=== PATIENT | male | born 1960 | race Caucasian/White ===

== ENCOUNTER → 2017-04-04 | Outpatient (CLI) | payer OTHER, MEDICAID ==
[~2017-04-04] MED LIST: AVEL1TAB3 PO; FLAG500T PO; PANT40TA2 PO; POTA10CA PO; PROT1TAB2 PO; TYLE500T78 PO
[2017-04-04 14:17] LABS: MEAN CORPUSCULAR HEMOGLOBIN 34.2 pg (27.0-33.0); MEAN CORPUSCULAR HGB CONC 34.5 g/dl (32.0-36.5); MEAN CORPUSCULAR VOLUME 99.1 fl (80.0-96.0); PLATELET COUNT, AUTOMATED 180 10^3/uL (150-450); RED CELL DISTRIBUTION WIDTH 12.6 % (11.5-14.5); WHITE BLOOD COUNT 7.5 10^3/uL (4.0-10.0)
[2017-04-04 14:43] LABS: ALBUMIN 3.8 GM/DL (3.2-5.2); ALBUMIN/GLOBULIN RATIO 1.31 (1.00-1.93); ALKALINE PHOSPHATASE 66 U/L (45-117); ALT/SGPT 29 U/L (12-78); ANION GAP 5 MEQ/L (8-16); AST/SGOT 18 U/L (15-37); BILIRUBIN,TOTAL 0.8 MG/DL (0.2-1.0); BLOOD UREA NITROGEN 14 MG/DL (7-18); CALCIUM LEVEL 8.9 MG/DL (8.5-10.1); CARBON DIOXIDE LEVEL 31 MEQ/L (21-32); CHLORIDE LEVEL 106 MEQ/L (98-107); CREATININE FOR GFR 1.05 MG/DL (0.70-1.30); GLOMERULAR FILTRATION RATE > 60.0 (>56); GLUCOSE, FASTING 93 MG/DL (70-105); SODIUM LEVEL 142 MEQ/L (136-145); THYROXINE (T4) 7.7 UG/DL (4.5-12.0); TOTAL PROTEIN 6.7 GM/DL (6.4-8.2)
[2017-04-04 14:58] LABS: ERYTHROCYTE SEDIMENTATION RATE 6 mm/hr (0-20)
[2017-04-05 10:34] LABS: THYROID PEROXIDASE ANTIBODY < 28.0 U/ML (<60.0)
[2017-04-09 00:08] LABS: IGE RECEPTOR ABY 1 5.6 (<10)
== END ==
LOC: M SMT 09:10
PROVIDERS: ATTEND Allergy & Immunology Allergy
DX: L50.1 Idiopathic urticaria (principal)

== ENCOUNTER 2024-09-03 09:14 | Inpatient (IN) | payer OTHER ==
[~2024-09-03] VITALS: Ht 177.8 cm; Wt 110.0 kg
[~2024-09-03 09:14] MED LIST changes: +DOXY100C3 PO; +MUCI600T37 PO; -PANT40TA2 PO; +PANT40TA29 PO; +POTA-136 PO; -POTA10CA PO
[2024-09-03] MEDS: ALBUTEROL SULFATE 2.5MG/0.5ML INH NEB SOLN INH ONE (09:45)
[2024-09-03] MEDS: IPRATROPIUM 0.5MG/ALBUTEROL 2.5MG INH SOL UD 3ML (DUONEB) NEB ONE (09:45)
[2024-09-03] MEDS: NS (Normal Saline) 0.9% 1,000 ML IV ONE (09:56)
[2024-09-03] MEDS: methylPREDNISolone 125MG 2ML VIAL IV ONE (10:01)
[2024-09-03 10:12] LABS: BASO # 0.1 10^3/uL (0.0-0.2); BASO % 0.3 % (0.0-1.0); EOS # 0.1 10^3/uL (0.0-0.5); EOS % 0.8 % (0.0-3.0); HEMATOCRIT 40.2 % (42.0-52.0); HEMOGLOBIN 14.3 g/dl (13.5-17.5); LYMPH # 1.6 10^3/uL (1.5-5.0); LYMPH % 10.7 % (24.0-44.0); MEAN CORPUSCULAR HEMOGLOBIN 33.5 pg (27.0-33.0); MEAN CORPUSCULAR HGB CONC 35.6 g/dl (32.0-36.5); MEAN CORPUSCULAR VOLUME 94.1 fl (80.0-96.0); MONO % 6.6 % (2.0-8.0); NEUTROPHILS # 11.7 10^3/uL (1.5-8.5); NEUTROPHILS % 80.7 % (36.0-66.0); PLATELET COUNT, AUTOMATED 188 10^3/uL (150-450); RED BLOOD COUNT 4.27 10^6/uL (4.30-6.10); WHITE BLOOD COUNT 14.5 10^3/uL (4.0-10.0)
[2024-09-03 10:13] LABS: VENOUS BASE EXCESS -3.4 (-2.0-2.0); VENOUS HCO3 19.9 MMOL/L (23.0-27.0); VENOUS O2 SATURATION 81.9 % (60.0-80.0); VENOUS PARTIAL PRESSURE CO2 31.2 mmHg (38.0-50.0); VENOUS PARTIAL PRESSURE O2 45.1 mmHg (30.0-50.0); VENOUS PH 7.422 UNITS (7.330-7.430); VENOUS STANDARD HCO3 21.3 MMOL/L; VENOUS TOTAL CO2 20.8 MMOL/L (24.0-28.0)
[2024-09-03] MEDS: LORazepam 2 MG/ML 1ML VIAL IV STA (10:23)
[2024-09-03 10:30] LABS: INR 1.27; PARTIAL THROMBOPLASTIN TIME 32.7 SECONDS (24.8-34.2); PROTHROMBIN TIME 16.1 SECONDS (12.5-14.5)
[2024-09-03 10:30] LABS: ABG BASE EXCESS -0.6 (-2.0-2.0); ABG HCO3 21.9 MMOL/L (22.0-26.0); ABG O2 SATURATION 94.9 % (95.0-99.0); ABG PARTIAL PRESSURE CO2 30.1 mmHg (35.0-45.0); ABG PARTIAL PRESSURE O2 75.8 mmHg (75.0-100.0); ABG STANDARD HCO3 23.9 MMOL/L. (22.0-26.0); ABG TOTAL CO2 22.8 MMOL/L (23.0-31.0)
[2024-09-03 10:36] LABS: CK-MB VALUE MASS 2.3 NG/ML (<3.6)
[2024-09-03 10:38] LABS: ALBUMIN 2.8 G/DL (3.2-5.2); ALKALINE PHOSPHATASE 99 U/L (40-129); ALT/SGPT 24 U/L (7.0-40); AST/SGOT 37 U/L (<34); BILIRUBIN,DIRECT 0.5 MG/DL (<0.4); BILIRUBIN,TOTAL 1.3 MG/DL (0.3-1.2); BLOOD UREA NITROGEN 13 MG/DL (9-23); CALCIUM LEVEL 8.4 MG/DL (8.3-10.6); CARBON DIOXIDE LEVEL 24 MMOL/L (20-31); CHLORIDE LEVEL 101 MMOL/L (98-107); CPK CREATINE PHOSPHOKINASE 428 U/L (46-171); CREATININE FOR GFR 1.08 MG/DL (0.70-1.30); GLOMERULAR FILTRATION RATE > 60.0 (>49); GLUCOSE, FASTING 119 MG/DL (74-106); MAGNESIUM LEVEL 2.4 MG/DL (1.8-2.4); MB/CK RELATIVE INDEX 0.53 (< OR =4); POTASSIUM SERUM 3.6 MMOL/L (3.5-5.1); SODIUM LEVEL 139 MMOL/L (136-145)
[2024-09-03 10:39] LABS: THYROXINE (T4) 6.7 UG/DL (4.5-10.9)
[2024-09-03] MEDS ORDERED: ISOVUE-370 76% 100ML VIAL As Ordered ONE (10:39)
[2024-09-03 10:40] LABS: THYROID STIMULATING HORMONE 6.604 uIU/ML (0.55-4.78)
[2024-09-03 10:44] LABS: PROCALCITONIN 0.24 ng/ml
[2024-09-03] MEDS: LevoFLOXacin IV 750 MG in IV 1 EA IV ONE (11:13)
[2024-09-03] MEDS ORDERED: HOME MED LIST COMPLETE! XX SCH (11:15)
[2024-09-03] MEDS: CEFEPIME HCL 2 GM in DEXTROSE 5% (D5W) ADV/MINI-BAG 50 ML IV ONE (11:20)
[2024-09-03 11:39] LABS: CK-MB VALUE MASS 2.1 NG/ML (<3.6)
[2024-09-03 11:45] LABS: MB/CK RELATIVE INDEX 0.56 (< OR =4)
[2024-09-03] MEDS: DIGOXIN INJ 0.5 MG/2 ML AMP IV STA (11:47)
[2024-09-03] MEDS: [UNRECOGNIZED DRUG - OTHER] IV ONE (12:11)
[2024-09-03] MEDS: NS 0.9% IV ONE (12:11)
[2024-09-03] MEDS: MIDODRINE 5 MG TAB PO SCH (13:13)
[2024-09-03 16:00] VITALS: BP 118/64; TEMP 97.9
[2024-09-03] MEDS: DIGOXIN INJ 0.5 MG/2 ML AMP IV SCH (16:16)
[2024-09-03] MEDS: NS (Normal Saline) 0.9% 1,000 ML IV SCH (16:16)
[2024-09-03 20:34] VITALS: BP 118/65; TEMP 96.9; O2SAT 94
[2024-09-03] MEDS: DOXYCYCLINE HYCLATE 100MG TABLET PO SCH (20:52)
[2024-09-03 23:45] VITALS: BP 127/65; TEMP 97; O2SAT 94
[2024-09-04] VITALS (9 sets, daily range): BP systolic 107–136; BP diastolic 55–70; TEMP 97.4–98.2; O2SAT 85–96
[2024-09-04 05:41] LABS: BASO % 0.1 % (0.0-1.0); HEMATOCRIT 31.3 % (42.0-52.0); LYMPH # 1.1 10^3/uL (1.5-5.0); LYMPH % 9.2 % (24.0-44.0); MEAN CORPUSCULAR HEMOGLOBIN 34.2 pg (27.0-33.0); MEAN CORPUSCULAR HGB CONC 35.1 g/dl (32.0-36.5); MEAN CORPUSCULAR VOLUME 97.2 fl (80.0-96.0); MONO # 0.6 10^3/uL (0.0-0.8); MONO % 4.9 % (2.0-8.0); NEUTROPHILS # 9.8 10^3/uL (1.5-8.5); PLATELET COUNT, AUTOMATED 130 10^3/uL (150-450); RED BLOOD COUNT 3.22 10^6/uL (4.30-6.10); WHITE BLOOD COUNT 11.6 10^3/uL (4.0-10.0)
[2024-09-04 06:07] LABS: DIGOXIN LEVEL 0.6 NG/ML (0.8-2.0)
[2024-09-04 06:10] LABS: BLOOD UREA NITROGEN 16 MG/DL (9-23); CALCIUM LEVEL 7.1 MG/DL (8.3-10.6); CARBON DIOXIDE LEVEL 22 MMOL/L (20-31); CHLORIDE LEVEL 110 MMOL/L (98-107); CHOLESTEROL LEVEL 124 MG/DL (<200); CHOLESTEROL RISK RATIO 6.04 (<5); CREATININE FOR GFR 0.86 MG/DL (0.70-1.30); GLOMERULAR FILTRATION RATE > 60.0 (>49); GLUCOSE, FASTING 137 MG/DL (74-106); HDL CHOLESTEROL 20.5 MG/DL (>40); LDL CHOLESTEROL 86.7 MG/DL (<100); NON-HDL-C 103.5 MG/DL; POTASSIUM SERUM 4.2 MMOL/L (3.5-5.1); SODIUM LEVEL 143 MMOL/L (136-145); TRIGLYCERIDES LEVEL 84 MG/DL (<150)
[2024-09-04 07:14] LABS: HEMOGLOBIN A1c 4.4 % (4.0-6.0)
[2024-09-04] MEDS: DIGOXIN 0.125 MG TAB PO SCH (08:26)
[2024-09-04] MEDS: cefTRIAXone SOD 2 GM in DEXTROSE 5% (D5W) ADV/MINI-BAG 50 ML IV SCH (08:26)
[2024-09-04] MEDS: FLUBLOK(EGGFREE) TRIVAL(24-25) VACCINE PF 0.5ML SYRINGE 18YRS & OLDER IM.IMMUN ONE (08:28)
[2024-09-04] MEDS: ALPRAZolam 0.5 MG TAB PO PRN (08:49)
[2024-09-04] MEDS: methylPREDNISolone 125MG 2ML VIAL IV ONE (10:22)
[2024-09-04] MEDS: metOLazone 5 MG TAB PO ONE (10:27)
[2024-09-04] MEDS ORDERED: FUROSEMIDE 40MG/4ML VIAL IV SCH (11:00)
[2024-09-04] MEDS: LEVALBUTEROL 1.25MG 0.5ML CONCENTRATE NEB INH SCH (12:54)
[2024-09-04] MEDS: MIDODRINE 5 MG TAB PO ONE (13:00)
[2024-09-04] MEDS: IPRATROPIUM 0.02% SOLN 0.5MG 2.5ML NEB INH SCH (14:02)
[2024-09-04] MEDS: methylPREDNISolone 125MG 2ML VIAL IV SCH (15:51)
[2024-09-04 16:44] LABS: BLOOD UREA NITROGEN 18 MG/DL (9-23); CARBON DIOXIDE LEVEL 26 MMOL/L (20-31); CHLORIDE LEVEL 105 MMOL/L (98-107); CREATININE FOR GFR 0.89 MG/DL (0.70-1.30); GLOMERULAR FILTRATION RATE > 60.0 (>49); GLUCOSE, FASTING 155 MG/DL (74-106); MAGNESIUM LEVEL 2.4 MG/DL (1.8-2.4); POTASSIUM SERUM 4.3 MMOL/L (3.5-5.1); SODIUM LEVEL 141 MMOL/L (136-145)
[2024-09-04] MEDS: FUROSEMIDE injection 100 MG, VIAL 2 BAG 13MM ADAPTER 1 EACH in NS 100 ML IV SCH (20:43)
[2024-09-05 04:14] VITALS: BP 107/66; TEMP 98; O2SAT 93
[2024-09-05 05:48] LABS: BASO % 0.1 % (0.0-1.0); HEMATOCRIT 35.3 % (42.0-52.0); HEMOGLOBIN 12.2 g/dl (13.5-17.5); LYMPH # 0.9 10^3/uL (1.5-5.0); LYMPH % 6.2 % (24.0-44.0); MEAN CORPUSCULAR HEMOGLOBIN 33.1 pg (27.0-33.0); MEAN CORPUSCULAR HGB CONC 34.6 g/dl (32.0-36.5); MEAN CORPUSCULAR VOLUME 95.7 fl (80.0-96.0); MONO # 0.5 10^3/uL (0.0-0.8); MONO % 3.5 % (2.0-8.0); NEUTROPHILS # 12.9 10^3/uL (1.5-8.5); NEUTROPHILS % 89.3 % (36.0-66.0); PLATELET COUNT, AUTOMATED 151 10^3/uL (150-450); RED BLOOD COUNT 3.69 10^6/uL (4.30-6.10); WHITE BLOOD COUNT 14.4 10^3/uL (4.0-10.0)
[2024-09-05 06:13] LABS: BLOOD UREA NITROGEN 18 MG/DL (9-23); CALCIUM LEVEL 8.8 MG/DL (8.3-10.6); CARBON DIOXIDE LEVEL 26 MMOL/L (20-31); CHLORIDE LEVEL 101 MMOL/L (98-107); CREATININE FOR GFR 1.03 MG/DL (0.70-1.30); GLOMERULAR FILTRATION RATE > 60.0 (>49); GLUCOSE, FASTING 184 MG/DL (74-106); POTASSIUM SERUM 3.2 MMOL/L (3.5-5.1); SODIUM LEVEL 140 MMOL/L (136-145)
[2024-09-05] MEDS: DIGOXIN INJ 0.5 MG/2 ML AMP IV STA (07:05)
[2024-09-05 07:16] VITALS: BP 152/67; TEMP 96.9; O2SAT 94
[2024-09-05] MEDS ORDERED: MIDODRINE 5 MG TAB PO SCH (08:00)
[2024-09-05] MEDS: METOPROLOL TART 25 MG TABLET PO ONE (09:39)
[2024-09-05] MEDS: FUROSEMIDE 40MG/4ML VIAL IV ONE (09:39)
[2024-09-05] MEDS: POTASSIUM CHLORIDE 10MEQ SR TABLET PO ONE (09:43)
[2024-09-05 11:54] VITALS: BP 97/62; TEMP 97.9; O2SAT 92
[2024-09-05] MEDS: DIGOXIN INJ 0.5 MG/2 ML AMP IV SCH (12:33)
[2024-09-05 16:24] VITALS: BP 112/66; TEMP 98.1; O2SAT 92
[2024-09-05 20:45] VITALS: BP 117/65; TEMP 98.9; O2SAT 95
[2024-09-05] MEDS: LEVALBUTEROL 1.25MG 0.5ML CONCENTRATE NEB INH SCH (23:41)
[2024-09-06] VITALS (9 sets, daily range): BP systolic 103–130; BP diastolic 59–77; TEMP 97–98.8; O2SAT 90–96
[2024-09-06] MEDS: DIGOXIN 0.125 MG TAB PO ONE (00:29)
[2024-09-06] MEDS: METOPROLOL TART 12.5 MG PER 1/2 TAB PO SCH ×2 (00:29→12:00)
[2024-09-06 06:18] LABS: BASO % 0.1 % (0.0-1.0); HEMATOCRIT 37.6 % (42.0-52.0); LYMPH % 6.9 % (24.0-44.0); MEAN CORPUSCULAR HEMOGLOBIN 33.9 pg (27.0-33.0); MEAN CORPUSCULAR HGB CONC 34.6 g/dl (32.0-36.5); MEAN CORPUSCULAR VOLUME 98.2 fl (80.0-96.0); MONO # 0.6 10^3/uL (0.0-0.8); NEUTROPHILS # 13.1 10^3/uL (1.5-8.5); NEUTROPHILS % 88.1 % (36.0-66.0); PLATELET COUNT, AUTOMATED 165 10^3/uL (150-450); RED BLOOD COUNT 3.83 10^6/uL (4.30-6.10); WHITE BLOOD COUNT 14.8 10^3/uL (4.0-10.0)
[2024-09-06 06:44] LABS: BLOOD UREA NITROGEN 30 MG/DL (9-23); CALCIUM LEVEL 8.3 MG/DL (8.3-10.6); CARBON DIOXIDE LEVEL 30 MMOL/L (20-31); CHLORIDE LEVEL 99 MMOL/L (98-107); CREATININE FOR GFR 1.15 MG/DL (0.70-1.30); GLOMERULAR FILTRATION RATE > 60.0 (>49); GLUCOSE, FASTING 142 MG/DL (74-106); POTASSIUM SERUM 3.9 MMOL/L (3.5-5.1); SODIUM LEVEL 139 MMOL/L (136-145)
[2024-09-06] MEDS: DIGOXIN 0.25 MG TAB PO SCH (09:13)
[2024-09-06] MEDS: MIDODRINE 5 MG TAB PO SCH (09:14)
[2024-09-06] MEDS: ACETAMINOPHEN 500 MG TAB PO ONE (17:09)
[2024-09-06] MEDS: POTASSIUM CHLORIDE 10MEQ SR TABLET PO ONE (17:09)
[2024-09-06] MEDS: traMADol 50 MG TAB PO ONE (17:10)
[2024-09-06 17:38] LABS: URINE STREP PNEUMONIAE ANTIGEN NOT DETECTED (NOT DETECT)
[2024-09-06] MEDS ORDERED: ACETAMINOPHEN 325 MG TAB PO PRN (21:00)
[2024-09-06] MEDS: methylPREDNISolone 40MG 1ML VIAL IV SCH (21:30)
[2024-09-07] VITALS (32 sets, daily range): BP systolic 91–134; BP diastolic 48–68; TEMP 97.2–98.6; O2SAT 78–96
[2024-09-07 07:32] LABS: BASO % 0.1 % (0.0-1.0); HEMATOCRIT 35.6 % (42.0-52.0); HEMOGLOBIN 12.2 g/dl (13.5-17.5); LYMPH # 1.3 10^3/uL (1.5-5.0); LYMPH % 10.9 % (24.0-44.0); MEAN CORPUSCULAR HEMOGLOBIN 33.7 pg (27.0-33.0); MEAN CORPUSCULAR HGB CONC 34.3 g/dl (32.0-36.5); MEAN CORPUSCULAR VOLUME 98.3 fl (80.0-96.0); MONO # 0.7 10^3/uL (0.0-0.8); MONO % 5.7 % (2.0-8.0); NEUTROPHILS % 82.2 % (36.0-66.0); PLATELET COUNT, AUTOMATED 149 10^3/uL (150-450); RED BLOOD COUNT 3.62 10^6/uL (4.30-6.10); WHITE BLOOD COUNT 12.2 10^3/uL (4.0-10.0)
[2024-09-07 07:50] LABS: DIGOXIN LEVEL 1.7 NG/ML (0.8-2.0)
[2024-09-07 07:51] LABS: BLOOD UREA NITROGEN 36 MG/DL (9-23); CALCIUM LEVEL 8.1 MG/DL (8.3-10.6); CARBON DIOXIDE LEVEL 28 MMOL/L (20-31); CHLORIDE LEVEL 102 MMOL/L (98-107); CREATININE FOR GFR 1.01 MG/DL (0.70-1.30); GLOMERULAR FILTRATION RATE > 60.0 (>49); GLUCOSE, FASTING 121 MG/DL (74-106); POTASSIUM SERUM 4.3 MMOL/L (3.5-5.1); SODIUM LEVEL 138 MMOL/L (136-145)
[2024-09-07] MEDS: FORMOTEROL FUMARATE 20 MCG/2 ML INHALATION SOLUTION (PERFOROMIST) INH SCH (09:18)
[2024-09-07] MEDS: BUDESONIDE 0.5 MG/2 ML INHALATION SUSPENSION NEB SCH (09:18)
[2024-09-07 19:27] LABS: MYCOPLASMA PNEUMONIAE IGG 2.14 (<=0.90)
[2024-09-08 02:13] VITALS: O2SAT 86
[2024-09-08 02:16] VITALS: O2SAT 89
[2024-09-08 03:51] VITALS: BP 106/55; TEMP 97.7; O2SAT 93
[2024-09-08 06:03] LABS: BASO % 0.2 % (0.0-1.0); HEMOGLOBIN 12.6 g/dl (13.5-17.5); LYMPH # 1.2 10^3/uL (1.5-5.0); LYMPH % 9.9 % (24.0-44.0); MEAN CORPUSCULAR HEMOGLOBIN 33.2 pg (27.0-33.0); MEAN CORPUSCULAR HGB CONC 34.1 g/dl (32.0-36.5); MEAN CORPUSCULAR VOLUME 97.4 fl (80.0-96.0); MONO # 0.7 10^3/uL (0.0-0.8); NEUTROPHILS % 82.7 % (36.0-66.0); PLATELET COUNT, AUTOMATED 168 10^3/uL (150-450)
[2024-09-08 06:32] LABS: BLOOD UREA NITROGEN 34 MG/DL (9-23); CALCIUM LEVEL 8.1 MG/DL (8.3-10.6); CARBON DIOXIDE LEVEL 28 MMOL/L (20-31); CHLORIDE LEVEL 102 MMOL/L (98-107); DIGOXIN LEVEL 1.7 NG/ML (0.8-2.0); GLOMERULAR FILTRATION RATE > 60.0 (>49); GLUCOSE, FASTING 116 MG/DL (74-106); POTASSIUM SERUM 4.5 MMOL/L (3.5-5.1); SODIUM LEVEL 139 MMOL/L (136-145)
[2024-09-08] MEDS: CEFDINIR 300 MG CAP (OMNICEF) PO SCH (09:53)
[2024-09-08] MEDS: TIOTROPIUM INHALER/CAPSULE (SPIRIVA) INH SCH (11:48)
[2024-09-08 12:00] VITALS: BP 116/67; TEMP 97.3; O2SAT 95
[2024-09-08] MEDS: methylPREDNISolone 40MG 1ML VIAL IV SCH (17:26)
[2024-09-08 19:55] VITALS: BP 127/69; TEMP 97.3; O2SAT 94
[2024-09-09] VITALS (8 sets, daily range): BP systolic 107–131; BP diastolic 58–72; TEMP 97.4–98.1; O2SAT 90–94
[2024-09-09 05:46] LABS: BASO % 0.2 % (0.0-1.0); HEMATOCRIT 38.6 % (42.0-52.0); HEMOGLOBIN 13.2 g/dl (13.5-17.5); LYMPH # 0.8 10^3/uL (1.5-5.0); LYMPH % 6.6 % (24.0-44.0); MEAN CORPUSCULAR HEMOGLOBIN 33.5 pg (27.0-33.0); MEAN CORPUSCULAR HGB CONC 34.2 g/dl (32.0-36.5); MONO # 0.3 10^3/uL (0.0-0.8); MONO % 2.3 % (2.0-8.0); NEUTROPHILS # 11.1 10^3/uL (1.5-8.5); NEUTROPHILS % 89.6 % (36.0-66.0); PLATELET COUNT, AUTOMATED 175 10^3/uL (150-450); RED BLOOD COUNT 3.94 10^6/uL (4.30-6.10); WHITE BLOOD COUNT 12.4 10^3/uL (4.0-10.0)
[2024-09-09 06:10] LABS: BLOOD UREA NITROGEN 29 MG/DL (9-23); CALCIUM LEVEL 8.1 MG/DL (8.3-10.6); CARBON DIOXIDE LEVEL 28 MMOL/L (20-31); CHLORIDE LEVEL 105 MMOL/L (98-107); CPK CREATINE PHOSPHOKINASE 92 U/L (46-171); CREATININE FOR GFR 0.89 MG/DL (0.70-1.30); DIGOXIN LEVEL 1.4 NG/ML (0.8-2.0); GLOMERULAR FILTRATION RATE > 60.0 (>49); GLUCOSE, FASTING 133 MG/DL (74-106); POTASSIUM SERUM 4.8 MMOL/L (3.5-5.1); SODIUM LEVEL 140 MMOL/L (136-145)
[2024-09-09 06:11] LABS: RHEUMATOID FACTOR QUANT < 3.5 IU/ML (<14)
[2024-09-09] MEDS: FLUTICASONE PROP 0.05% NASAL SPRAY 16 GM (FLONASE) NARES SCH (08:20)
[2024-09-09] MEDS ORDERED: PRED10TA2 PO (17:00)
[2024-09-09] MEDS ORDERED: IPRA0.00 NEB (17:02)
[2024-09-09] MEDS ORDERED: EASY-106 XX (17:02)
[2024-09-09] MEDS ORDERED: DIGO0.123 PO (17:03)
[2024-09-10 04:13] VITALS: BP 113/71; TEMP 98.2; O2SAT 90
[2024-09-10 06:44] LABS: BASO % 0.2 % (0.0-1.0); HEMATOCRIT 38.6 % (42.0-52.0); HEMOGLOBIN 13.2 g/dl (13.5-17.5); LYMPH # 1.1 10^3/uL (1.5-5.0); LYMPH % 7.6 % (24.0-44.0); MEAN CORPUSCULAR HEMOGLOBIN 33.2 pg (27.0-33.0); MEAN CORPUSCULAR HGB CONC 34.2 g/dl (32.0-36.5); MEAN CORPUSCULAR VOLUME 97.2 fl (80.0-96.0); MONO # 0.5 10^3/uL (0.0-0.8); NEUTROPHILS % 87.6 % (36.0-66.0); PLATELET COUNT, AUTOMATED 198 10^3/uL (150-450); RED BLOOD COUNT 3.97 10^6/uL (4.30-6.10); WHITE BLOOD COUNT 14.8 10^3/uL (4.0-10.0)
[2024-09-10 07:02] LABS: BLOOD UREA NITROGEN 28 MG/DL (9-23); CALCIUM LEVEL 8.3 MG/DL (8.3-10.6); CARBON DIOXIDE LEVEL 26 MMOL/L (20-31); CHLORIDE LEVEL 108 MMOL/L (98-107); CREATININE FOR GFR 0.89 MG/DL (0.70-1.30); DIGOXIN LEVEL 1.2 NG/ML (0.8-2.0); GLOMERULAR FILTRATION RATE > 60.0 (>49); GLUCOSE, FASTING 130 MG/DL (74-106); POTASSIUM SERUM 4.9 MMOL/L (3.5-5.1); SODIUM LEVEL 140 MMOL/L (136-145)
[2024-09-10] MEDS ORDERED: DOXY-440 PO (07:23)
[2024-09-10] MEDS ORDERED: CEFD1CAP9 PO (07:23)
[2024-09-10 11:50] VITALS: O2SAT 92
[2024-09-10 12:00] VITALS: BP 98/62; TEMP 97.6; O2SAT 92
[2024-09-10] MEDS: guaiFENesin ER TABLET 600 MG TAB PO SCH (12:15)
[2024-09-10 12:57] LABS: ANTI SCLERODERMA ANTIBODIES <1.0 NEG AI (<1.0 NEG); RNP ANTIBODY <1.0 NEG AI (<1.0 NEG); SM ANTIBODY <1.0 NEG AI (<1.0 NEG); SSA SJOGRENS A <1.0 NEG AI (<1.0 NEG); SSB SJOGRENS B <1.0 NEG AI (<1.0 NEG)
[2024-09-10 16:15] VITALS: BP 123/63; O2SAT 93
[2024-09-11 04:03] VITALS: BP 103/58; TEMP 98.2; O2SAT 91
[2024-09-11 12:30] VITALS: BP 105/59; TEMP 97.5; O2SAT 96
[2024-09-11 15:17] LABS: ANA SCREEN, IFA NEGATIVE (NEGATIVE)
[2024-09-11 16:20] VITALS: BP 113/61
[2024-09-11 16:56] VITALS: BP 125/92; TEMP 97.7; O2SAT 92
[2024-09-11 19:42] VITALS: BP 108/63; TEMP 97.5; O2SAT 90; O2SAT 92
[2024-09-12] VITALS (11 sets, daily range): BP systolic 110–136; BP diastolic 65–77; TEMP 97.2–97.5; O2SAT 86–98
[2024-09-12] MEDS: IPRATROPIUM 0.5MG/ALBUTEROL 2.5MG INH SOL UD 3ML (DUONEB) NEB PRN (04:13)
[2024-09-12 12:47] LABS: BASO % 0.1 % (0.0-1.0); HEMATOCRIT 40.6 % (42.0-52.0); HEMOGLOBIN 14.2 g/dl (13.5-17.5); LYMPH % 4.9 % (24.0-44.0); MEAN CORPUSCULAR HEMOGLOBIN 34.1 pg (27.0-33.0); MEAN CORPUSCULAR VOLUME 97.4 fl (80.0-96.0); MONO # 1.3 10^3/uL (0.0-0.8); MONO % 6.3 % (2.0-8.0); NEUTROPHILS # 18.4 10^3/uL (1.5-8.5); NEUTROPHILS % 86.5 % (36.0-66.0); PLATELET COUNT, AUTOMATED 212 10^3/uL (150-450); RED BLOOD COUNT 4.17 10^6/uL (4.30-6.10); WHITE BLOOD COUNT 21.3 10^3/uL (4.0-10.0)
[2024-09-12 13:07] LABS: ERYTHROCYTE SEDIMENTATION RATE 10 mm/hr (0-20)
[2024-09-12 13:08] LABS: BLOOD UREA NITROGEN 31 MG/DL (9-23); C REACTIVE PROTEIN QUANTITATIV < 0.50 MG/DL (<1.0); CALCIUM LEVEL 7.9 MG/DL (8.3-10.6); CARBON DIOXIDE LEVEL 24 MMOL/L (20-31); CHLORIDE LEVEL 107 MMOL/L (98-107); CREATININE FOR GFR 0.82 MG/DL (0.70-1.30); GLOMERULAR FILTRATION RATE > 60.0 (>49); GLUCOSE, FASTING 156 MG/DL (74-106); POTASSIUM SERUM 4.8 MMOL/L (3.5-5.1); SODIUM LEVEL 138 MMOL/L (136-145)
[2024-09-13 03:43] VITALS: BP 109/70; TEMP 97; O2SAT 93
[2024-09-13 07:51] LABS: PROCALCITONIN 0.08 ng/ml
[2024-09-13 12:00] VITALS: BP 111/64; TEMP 97; O2SAT 97
[2024-09-13 15:33] LABS: FREE T4 0.93 NG/DL (0.89-1.76); THYROID STIMULATING HORMONE 3.594 uIU/ML (0.55-4.78)
[2024-09-13 20:31] VITALS: BP 136/83; TEMP 97.3; O2SAT 93
[2024-09-14 01:38] LABS: RNA POLYMERASE III IgG AB < 20 Units (<20)
[2024-09-14 04:30] VITALS: BP 107/57; TEMP 97.2; O2SAT 90
[2024-09-14 04:50] VITALS: O2SAT 86
[2024-09-14 04:54] VITALS: O2SAT 92
[2024-09-14] MEDS ORDERED: E-Z-PAQUE 96% w/w SUSP 176GM BTL As Ordered ONE (08:28)
[2024-09-14] MEDS ORDERED: E-Z-GAS II EFFERVESCENT PACKET (SODIUM BICARB./CITRIC ACID/SIMETHICONE) As Ordered ONE (08:28)
[2024-09-14] MEDS ORDERED: E-Z-HD 98% w/w 340GM SUSP BTL As Ordered ONE (08:28)
[2024-09-14 11:27] LABS: CPK CREATINE PHOSPHOKINASE 60 U/L (46-171)
[2024-09-14 11:28] LABS: BLOOD UREA NITROGEN 30 MG/DL (9-23); CALCIUM LEVEL 7.8 MG/DL (8.3-10.6); CARBON DIOXIDE LEVEL 26 MMOL/L (20-31); CHLORIDE LEVEL 106 MMOL/L (98-107); CREATININE FOR GFR 0.75 MG/DL (0.70-1.30); GLOMERULAR FILTRATION RATE > 60.0 (>49); GLUCOSE, FASTING 99 MG/DL (74-106); MB/CK RELATIVE INDEX 3.33 (< OR =4); POTASSIUM SERUM 4.5 MMOL/L (3.5-5.1); SODIUM LEVEL 139 MMOL/L (136-145)
[2024-09-14 11:52] VITALS: BP 117/69; TEMP 97.5; O2SAT 91
[2024-09-14 20:42] VITALS: BP 114/67; TEMP 97.2; O2SAT 95
[2024-09-15 04:29] VITALS: BP 103/56; TEMP 97.7; O2SAT 93
[2024-09-15] MEDS: PANTOPRAZOLE 40MG TAB (PROTONIX) PO SCH (09:00)
[2024-09-15 12:00] VITALS: BP 105/67; TEMP 97; O2SAT 96
[2024-09-15] MEDS: SUCRALFATE SUSP 1GM/10ML UD PO SCH (14:01)
[2024-09-15 17:36] LABS: IONIZED CALCIUM 4.6 MG/DL (4.5-5.3)
[2024-09-15] MEDS: methylPREDNISolone 40MG 1ML VIAL IV SCH (18:08)
[2024-09-15 18:10] LABS: MAGNESIUM LEVEL 2.5 MG/DL (1.8-2.4); POTASSIUM SERUM 4.8 MMOL/L (3.5-5.1)
[2024-09-15 18:13] LABS: CK-MB VALUE MASS 1.4 NG/ML (<3.6)
[2024-09-15 18:14] LABS: MB/CK RELATIVE INDEX 2.33 (< OR =4)
[2024-09-15] MEDS: CALCIUM GLUCONATE 1,000 MG in DEXTROSE 5% (D5W) MINI-BAG PLU 100 ML IV ONE (20:21)
[2024-09-15 21:17] VITALS: BP 108/64; TEMP 97.3; O2SAT 94
[2024-09-16 03:37] VITALS: BP 103/61; TEMP 97.2; O2SAT 93
[2024-09-16 08:57] VITALS: BP 109/66; TEMP 97.3; O2SAT 93
[2024-09-16 12:00] VITALS: BP 115/70; TEMP 97.2; O2SAT 95
[2024-09-16] MEDS: methylPREDNISolone 40MG 1ML VIAL IV SCH (17:18)
[2024-09-16 21:42] VITALS: BP 100/64; TEMP 97; O2SAT 93
[2024-09-17] VITALS (9 sets, daily range): BP systolic 91–120; BP diastolic 55–66; TEMP 97–97.7; O2SAT 84–93
[2024-09-17] MEDS: MIDODRINE 5 MG TAB PO ONE (08:05)
[2024-09-17] MEDS ORDERED: PROT1TAB2 PO (08:08)
[2024-09-17] MEDS ORDERED: CARA1TAB6 PO (08:08)
[2024-09-17] MEDS: predniSONE 20 MG TAB PO SCH (09:34)
[2024-09-17] MEDS ORDERED: NEBU1EAC80 MC (13:58)
[2024-09-17 15:36] LABS: ANTI DS-DNA AB NEGATIVE (NEGATIVE)
[2024-09-18 00:30] LABS: ANCA SCREEN Negative (Negative)
[2024-09-18 11:58] LABS: ASPERGILLUS FUMIGATUS AB NEGATIVE (NEGATIVE); MICROPOLYSPORA FAENI AB NEGATIVE (NEGATIVE); PIGEON SERUM AB NEGATIVE (NEGATIVE); S VIRIDIS NEGATIVE (NEGATIVE); T CANDIDUS NEGATIVE (NEGATIVE); THERMOACTINOMYCES VULGARIS NEGATIVE (NEGATIVE)
== END 2024-09-17 17:35 | disposition home health service (06) | DRG 720 ==
LOC: M ED 09:14 → EDBD 09:14 → M ED INP 12:21 → M PCU 15:40 → M MS4PR 09-07 10:20 → M MSPAV 09-11 16:31
PROVIDERS: ADMIT General Practice; ATTEND General Practice
DX: A41.9 Sepsis, unspecified organism (principal); J96.01 Acute respiratory failure with hypoxia; I50.31 Acute diastolic (congestive) heart failure; E87.20 Acidosis, unspecified; J18.9 Pneumonia, unspecified organism; J84.10 Pulmonary fibrosis, unspecified; K76.0 Fatty (change of) liver, not elsewhere classified; I48.0 Paroxysmal atrial fibrillation; E83.51 Hypocalcemia; I48.92 Unspecified atrial flutter; J44.1 Chronic obstructive pulmonary disease with (acute) exacerbation; E86.0 Dehydration; E87.6 Hypokalemia; D72.829 Elevated white blood cell count, unspecified; I44.0 Atrioventricular block, first degree; G47.33 Obstructive sleep apnea (adult) (pediatric); E66.9 Obesity, unspecified; Z68.34 Body mass index [BMI] 34.0-34.9, adult; I49.3 Ventricular premature depolarization; K64.8 Other hemorrhoids; M54.59 Other low back pain; Z87.891 Personal history of nicotine dependence; D53.9 Nutritional anemia, unspecified

== ENCOUNTER 2024-10-13 08:17 | Inpatient (IN) | payer OTHER ==
[~2024-10-13] VITALS: Ht 162.6 cm; Wt 104.7 kg
[~2024-10-13 08:17] MED LIST changes: +CARA1TAB6 PO; +CEFD1CAP9 PO; +DIGO0.123 PO; +DOXY-440 PO; +EASY-106 XX; +IPRA0.00 NEB; +NEBU1EAC80 MC; +PRED10TA2 PO
[2024-10-13] MEDS: METOPROLOL TART 25 MG TABLET PO ONE (08:51)
[2024-10-13] MEDS: METOPROLOL 5 MG/5 ML VIAL IV SCH (08:51)
[2024-10-13] MEDS: LORazepam 2 MG/ML 1ML VIAL IV STA (08:52)
[2024-10-13 09:01] LABS: VENOUS BASE EXCESS -0.4 (-2.0-2.0); VENOUS HCO3 21.8 MMOL/L (23.0-27.0); VENOUS O2 SATURATION 97.4 % (60.0-80.0); VENOUS PARTIAL PRESSURE CO2 29.2 mmHg (38.0-50.0); VENOUS PARTIAL PRESSURE O2 93.7 mmHg (30.0-50.0); VENOUS PH 7.491 UNITS (7.330-7.430); VENOUS STANDARD HCO3 24.1 MMOL/L; VENOUS TOTAL CO2 22.7 MMOL/L (24.0-28.0)
[2024-10-13 09:22] LABS: ALBUMIN 2.9 G/DL (3.2-5.2); ALKALINE PHOSPHATASE 68 U/L (40-129); ALT/SGPT 20 U/L (7.0-40); AST/SGOT 33 U/L (<34); BILIRUBIN,DIRECT 0.4 MG/DL (<0.4); BILIRUBIN,TOTAL 1.3 MG/DL (0.3-1.2); BLOOD UREA NITROGEN 13 MG/DL (9-23); CALCIUM LEVEL 8.2 MG/DL (8.3-10.6); CARBON DIOXIDE LEVEL 25 MMOL/L (20-31); CHLORIDE LEVEL 105 MMOL/L (98-107); CREATININE FOR GFR 0.93 MG/DL (0.70-1.30); GLOMERULAR FILTRATION RATE > 90.0 (>49); GLUCOSE, FASTING 113 MG/DL (74-106); MAGNESIUM LEVEL 2.1 MG/DL (1.8-2.4); POTASSIUM SERUM 4.5 MMOL/L (3.5-5.1); SODIUM LEVEL 140 MMOL/L (136-145); TOTAL PROTEIN 5.8 G/DL (5.7-8.2)
[2024-10-13 09:24] LABS: THYROID STIMULATING HORMONE 5.918 uIU/ML (0.55-4.78)
[2024-10-13 09:50] LABS: HEMATOCRIT 35.7 % (42.0-52.0); HEMOGLOBIN 12.1 g/dl (13.5-17.5); MEAN CORPUSCULAR HEMOGLOBIN 33.3 pg (27.0-33.0); MEAN CORPUSCULAR HGB CONC 33.9 g/dl (32.0-36.5); MEAN CORPUSCULAR VOLUME 98.3 fl (80.0-96.0); PLATELET COUNT, AUTOMATED 201 10^3/uL (150-450); RED BLOOD COUNT 3.63 10^6/uL (4.30-6.10); WHITE BLOOD COUNT 11.4 10^3/uL (4.0-10.0)
[2024-10-13 10:19] LABS: INR 1.07; PROTHROMBIN TIME 14.2 SECONDS (12.5-14.5)
[2024-10-13] MEDS: NS 0.9% IV STA (10:29)
[2024-10-13] MEDS: [UNRECOGNIZED DRUG - OTHER] IV STA (10:29)
[2024-10-13] MEDS: cefTRIAXone SOD 2 GM in DEXTROSE 5% (D5W) ADV/MINI-BAG 50 ML IV ONE (10:29)
[2024-10-13] MEDS ORDERED: ISOVUE-370 76% 100ML VIAL As Ordered ONE (10:31)
[2024-10-13] MEDS ORDERED: PANT-23 PO (11:48)
[2024-10-13] MEDS ORDERED: DOCU100C17 PO (11:48)
[2024-10-13] MEDS ORDERED: SUCR1TAB56 PO (11:48)
[2024-10-13] MEDS ORDERED: IPRA0.00 INH (11:48)
[2024-10-13] MEDS ORDERED: PRED20TA PO (11:48)
[2024-10-13] MEDS ORDERED: HOME MED LIST COMPLETE! XX SCH ×2 (11:50)
[2024-10-13] MEDS: NS 500 ML IV ONE (12:07)
[2024-10-13] MEDS ORDERED: ACETAMINOPHEN 325 MG TAB PO PRN (13:40)
[2024-10-13] MEDS ORDERED: MOM 30ML SUSPENSION UDC PO PRN (13:40)
[2024-10-13] MEDS: predniSONE 20 MG TAB PO SCH (13:57)
[2024-10-13] MEDS: DIGOXIN 0.25 MG TAB PO ONE ×2 (14:18→20:41)
[2024-10-13] MEDS: LR 1,000 ML IV ONE (14:52)
[2024-10-13 15:03] LABS: PROCALCITONIN 0.11 ng/ml
[2024-10-13 15:04] LABS: FREE T4 0.87 NG/DL (0.89-1.76)
[2024-10-13 16:50] VITALS: BP 106/65; TEMP 97.9; O2SAT 90
[2024-10-13] MEDS: SUCRALFATE 1 GM TAB PO SCH (18:09)
[2024-10-13 20:34] VITALS: BP 103/68; TEMP 97.3; O2SAT 92
[2024-10-13] MEDS: DOCUSATE SODIUM 100MG CAPSULE PO SCH (20:41)
[2024-10-13] MEDS: PANTOPRAZOLE 40MG TAB (PROTONIX) PO SCH (20:41)
[2024-10-13 23:06] VITALS: O2SAT 75
[2024-10-13 23:08] VITALS: O2SAT 83
[2024-10-13 23:10] VITALS: O2SAT 89
[2024-10-14] VITALS (18 sets, daily range): BP systolic 99–102; BP diastolic 56–71; TEMP 97.3–97.7; O2SAT 65–96
[2024-10-14] MEDS: IPRATROPIUM 0.5MG/ALBUTEROL 2.5MG INH SOL UD 3ML INH PRN (01:50)
[2024-10-14] MEDS: DIGOXIN 0.125 MG TAB PO ONE (02:36)
[2024-10-14] MEDS: guaiFENesin SYRUP 200MG 10ML UDC PO ONE (04:07)
[2024-10-14 05:14] LABS: HEMATOCRIT 32.2 % (42.0-52.0); HEMOGLOBIN 10.6 g/dl (13.5-17.5); MEAN CORPUSCULAR HEMOGLOBIN 32.7 pg (27.0-33.0); MEAN CORPUSCULAR HGB CONC 32.9 g/dl (32.0-36.5); MEAN CORPUSCULAR VOLUME 99.4 fl (80.0-96.0); PLATELET COUNT, AUTOMATED 182 10^3/uL (150-450); RED BLOOD COUNT 3.24 10^6/uL (4.30-6.10); WHITE BLOOD COUNT 10.7 10^3/uL (4.0-10.0)
[2024-10-14] MEDS: LEVOTHYROXINE 25MCG TABLET (0.025MG) PO SCH (05:41)
[2024-10-14 05:47] LABS: BLOOD UREA NITROGEN 15 MG/DL (9-23); CALCIUM LEVEL 8.1 MG/DL (8.3-10.6); CARBON DIOXIDE LEVEL 25 MMOL/L (20-31); CHLORIDE LEVEL 108 MMOL/L (98-107); CREATININE FOR GFR 0.85 MG/DL (0.70-1.30); GLOMERULAR FILTRATION RATE > 90.0 (>49); GLUCOSE, FASTING 96 MG/DL (74-106); MAGNESIUM LEVEL 2.1 MG/DL (1.8-2.4); POTASSIUM SERUM 3.9 MMOL/L (3.5-5.1); SODIUM LEVEL 142 MMOL/L (136-145)
[2024-10-14] MEDS: ENOXAPARIN 40MG/0.4ML SYRINGE (J1650 PER 10MG) SC SCH (08:39)
[2024-10-14] MEDS: guaiFENesin ER TABLET 600 MG TAB PO SCH (08:39)
[2024-10-14] MEDS: METOPROLOL TART 25 MG TABLET PO SCH (08:40)
[2024-10-14] MEDS: methylPREDNISolone 125MG 2ML VIAL IV ONE (12:30)
[2024-10-14] MEDS: LevoFLOXacin 750 MG TABLET PO SCH (12:30)
[2024-10-14] MEDS: IPRATROPIUM 0.5MG/ALBUTEROL 2.5MG INH SOL UD 3ML INH SCH (16:01)
[2024-10-14] MEDS: methylPREDNISolone 125MG 2ML VIAL IV SCH (21:12)
[2024-10-15 03:41] VITALS: BP 102/63; TEMP 97.9; O2SAT 96
[2024-10-15 05:30] VITALS: O2SAT 90
[2024-10-15 08:01] VITALS: BP 108/69
[2024-10-15 08:30] LABS: HEMATOCRIT 32.6 % (42.0-52.0); HEMOGLOBIN 11.1 g/dl (13.5-17.5); MEAN CORPUSCULAR HEMOGLOBIN 33.1 pg (27.0-33.0); MEAN CORPUSCULAR VOLUME 97.3 fl (80.0-96.0); PLATELET COUNT, AUTOMATED 193 10^3/uL (150-450); RED BLOOD COUNT 3.35 10^6/uL (4.30-6.10); WHITE BLOOD COUNT 11.3 10^3/uL (4.0-10.0)
[2024-10-15 09:00] LABS: BLOOD UREA NITROGEN 15 MG/DL (9-23); CALCIUM LEVEL 8.2 MG/DL (8.3-10.6); CARBON DIOXIDE LEVEL 23 MMOL/L (20-31); CHLORIDE LEVEL 107 MMOL/L (98-107); CREATININE FOR GFR 0.79 MG/DL (0.70-1.30); GLOMERULAR FILTRATION RATE > 90.0 (>49); GLUCOSE, FASTING 135 MG/DL (74-106); POTASSIUM SERUM 4.2 MMOL/L (3.5-5.1); SODIUM LEVEL 140 MMOL/L (136-145)
[2024-10-15] MEDS ORDERED: LEVO25TA5 PO (11:40)
[2024-10-15] MEDS ORDERED: PRED10TA2 PO (11:40)
[2024-10-15] MEDS ORDERED: METO1TAB87 PO (11:40)
[2024-10-15] MEDS ORDERED: LEVO75TAB PO (11:40)
[2024-10-15] MEDS ORDERED: PANT-23 PO (11:41)
[2024-10-15 12:25] VITALS: BP 111/68; TEMP 97.7; O2SAT 94
== END 2024-10-15 14:32 | disposition home or self-care (01) | DRG 201 ==
LOC: EDBD 08:17 → M ED 08:17 → M ED INP 13:37 → M MSPAV 16:51 → OBSVTOIN 10-14 11:22 → M MSPAV 10-14 15:14
PROVIDERS: ADMIT Student in an Organized Health Care Education/Training Program; ATTEND Student in an Organized Health Care Education/Training Program
DX: I48.92 Unspecified atrial flutter (principal); J96.21 Acute and chronic respiratory failure with hypoxia; J18.9 Pneumonia, unspecified organism; I50.32 Chronic diastolic (congestive) heart failure; J84.112 Idiopathic pulmonary fibrosis; E87.20 Acidosis, unspecified; K76.0 Fatty (change of) liver, not elsewhere classified; E03.9 Hypothyroidism, unspecified; K27.9 Peptic ulcer, site unspecified, unspecified as acute or chronic, without hemorrhage or perforation; I87.8 Other specified disorders of veins; K57.90 Diverticulosis of intestine, part unspecified, without perforation or abscess without bleeding; Z79.899 Other long term (current) drug therapy; Z88.0 Allergy status to penicillin; Z79.52 Long term (current) use of systemic steroids

== ENCOUNTER 2024-10-24 12:57 | Inpatient (IN) | payer MEDICAID, OTHER ==
[~2024-10-24] VITALS: Ht 177.8 cm; Wt 102.0 kg
[2024-10-24] VITALS (8 sets, daily range): BP systolic 89–112; BP diastolic 41–80; TEMP 97–97.6; O2SAT 89–96
[2024-10-24] MEDS: MIRALAX *UNIT DOSE* 17GM PACKET PO SCH (09:00)
[~2024-10-24 12:57] MED LIST changes: +DOCU100C17 PO; +IPRA0.00 INH; +LEVO25TA5 PO; +LEVO75TAB PO; +METO1TAB87 PO; +PANT-23 PO; +PRED20TA PO; +SUCR1TAB56 PO
[2024-10-24 13:54] LABS: VENOUS BASE EXCESS 2.4 (-2.0-2.0); VENOUS HCO3 27.4 MMOL/L (23.0-27.0); VENOUS PARTIAL PRESSURE CO2 44.3 mmHg (38.0-50.0); VENOUS PARTIAL PRESSURE O2 45.5 mmHg (30.0-50.0); VENOUS STANDARD HCO3 26.1 MMOL/L; VENOUS TOTAL CO2 28.8 MMOL/L (24.0-28.0)
[2024-10-24 13:59] LABS: BASO % 0.2 % (0.0-1.0); EOS % 0.4 % (0.0-3.0); HEMATOCRIT 38.2 % (42.0-52.0); HEMOGLOBIN 12.8 g/dl (13.5-17.5); LYMPH # 0.5 10^3/uL (1.5-5.0); LYMPH % 4.2 % (24.0-44.0); MEAN CORPUSCULAR HGB CONC 33.5 g/dl (32.0-36.5); MEAN CORPUSCULAR VOLUME 98.5 fl (80.0-96.0); MONO # 0.3 10^3/uL (0.0-0.8); MONO % 2.9 % (2.0-8.0); NEUTROPHILS # 9.8 10^3/uL (1.5-8.5); NEUTROPHILS % 90.8 % (36.0-66.0); PLATELET COUNT, AUTOMATED 182 10^3/uL (150-450); RED BLOOD COUNT 3.88 10^6/uL (4.30-6.10); WHITE BLOOD COUNT 10.7 10^3/uL (4.0-10.0)
[2024-10-24 14:29] LABS: CK-MB VALUE MASS 1.4 NG/ML (<3.6)
[2024-10-24 14:31] LABS: ALBUMIN 2.8 G/DL (3.2-5.2); ALKALINE PHOSPHATASE 77 U/L (40-129); ALT/SGPT 12 U/L (7.0-40); AST/SGOT 17 U/L (<34); BILIRUBIN,DIRECT 0.4 MG/DL (<0.4); BILIRUBIN,TOTAL 1.2 MG/DL (0.3-1.2); BLOOD UREA NITROGEN 16 MG/DL (9-23); CALCIUM LEVEL 7.8 MG/DL (8.3-10.6); CARBON DIOXIDE LEVEL 30 MMOL/L (20-31); CHLORIDE LEVEL 106 MMOL/L (98-107); CPK CREATINE PHOSPHOKINASE 29 U/L (46-171); CREATININE FOR GFR 0.94 MG/DL (0.70-1.30); GLOMERULAR FILTRATION RATE > 90.0 (>49); GLUCOSE, FASTING 115 MG/DL (74-106); MB/CK RELATIVE INDEX 4.82 (< OR =4); POTASSIUM SERUM 3.9 MMOL/L (3.5-5.1); SODIUM LEVEL 142 MMOL/L (136-145); TOTAL PROTEIN 5.8 G/DL (5.7-8.2)
[2024-10-24 14:33] LABS: THYROID STIMULATING HORMONE 6.056 uIU/ML (0.55-4.78)
[2024-10-24 14:37] LABS: PROCALCITONIN 0.11 ng/ml
[2024-10-24] MEDS ORDERED: ISOVUE-370 76% 100ML VIAL As Ordered ONE (14:56)
[2024-10-24] MEDS: CEFEPIME HCL 2 GM in DEXTROSE 5% (D5W) ADV/MINI-BAG 50 ML IV ONE (14:57)
[2024-10-24] MEDS: NS 500 ML IV ONE (16:10)
[2024-10-24] MEDS ORDERED: SYNT25TA PO (17:06)
[2024-10-24] MEDS ORDERED: METO1TAB87 PO (17:07)
[2024-10-24] MEDS ORDERED: PANT40TA29 PO (17:08)
[2024-10-24] MEDS ORDERED: PRED10TA2 PO (17:12)
[2024-10-24] MEDS ORDERED: HOME MED LIST COMPLETE! XX SCH (17:15)
[2024-10-24 17:57] LABS: LDH LACTATE DEHYDROGENASE 502 U/L (120-246)
[2024-10-24] MEDS: DIGOXIN 0.125 MG TAB PO SCH (18:15)
[2024-10-24] MEDS: AZITHROMYCIN 250MG TABLET PO SCH (18:15)
[2024-10-24] MEDS: methylPREDNISolone 40MG 1ML VIAL IV SCH (18:15)
[2024-10-24 18:27] LABS: HIV 1&2 SCREEN NEGATIVE (NEGATIVE)
[2024-10-24 18:36] LABS: FREE T4 1.12 NG/DL (0.89-1.76)
[2024-10-24] MEDS: IPRATROPIUM 0.5MG/ALBUTEROL 2.5MG INH SOL UD 3ML NEB SCH (19:30)
[2024-10-24] MEDS: FORMOTEROL FUMARATE 20 MCG/2 ML INHALATION SOLUTION (PERFOROMIST) INH SCH (19:30)
[2024-10-24] MEDS: BUDESONIDE 0.5 MG/2 ML INHALATION SUSPENSION NEB SCH (19:31)
[2024-10-24] MEDS: SODIUM CHLORIDE NASAL 0.65% SPRAY BTL (OCEAN) SCH (21:00)
[2024-10-24] MEDS: guaiFENesin ER TABLET 600 MG TAB PO SCH (21:00)
[2024-10-24] MEDS: methylPREDNISolone 125MG 2ML VIAL IV SCH (21:17)
[2024-10-24] MEDS: ENOXAPARIN 100MG/1ML SYRINGE (J1650 PER 10MG) SC SCH (21:17)
[2024-10-25] VITALS (33 sets, daily range): BP systolic 90–108; BP diastolic 52–66; TEMP 97.1–98.3; O2SAT 76–98
[2024-10-25 05:04] LABS: HEMATOCRIT 33.9 % (42.0-52.0); HEMOGLOBIN 11.2 g/dl (13.5-17.5); MEAN CORPUSCULAR HEMOGLOBIN 31.7 pg (27.0-33.0); PLATELET COUNT, AUTOMATED 169 10^3/uL (150-450); RED BLOOD COUNT 3.53 10^6/uL (4.30-6.10); WHITE BLOOD COUNT 9.7 10^3/uL (4.0-10.0)
[2024-10-25 05:16] LABS: CORTISOL AM 10.4 UG/DL (4.3-22.4)
[2024-10-25 05:17] LABS: BLOOD UREA NITROGEN 19 MG/DL (9-23); CALCIUM LEVEL 7.9 MG/DL (8.3-10.6); CARBON DIOXIDE LEVEL 26 MMOL/L (20-31); CHLORIDE LEVEL 107 MMOL/L (98-107); CREATININE FOR GFR 0.85 MG/DL (0.70-1.30); GLOMERULAR FILTRATION RATE > 90.0 (>49); GLUCOSE, FASTING 172 MG/DL (74-106); POTASSIUM SERUM 3.9 MMOL/L (3.5-5.1); SODIUM LEVEL 141 MMOL/L (136-145)
[2024-10-25] MEDS: LEVOTHYROXINE 50MCG TABLET (0.05MG) PO SCH (06:13)
[2024-10-25] MEDS: SODIUM CHLORIDE HYPERTONIC 3% 4ML NEB SOL INH ONE (09:22)
[2024-10-25] MEDS ORDERED: MIRALAX *UNIT DOSE* 17GM PACKET PO PRN (10:35)
[2024-10-25] MEDS: DOCUSATE SODIUM 100MG CAPSULE PO SCH (10:36)
[2024-10-25] MEDS: PANTOPRAZOLE 40MG TAB (PROTONIX) PO SCH (20:03)
[2024-10-25] MEDS: SIMETHICONE 80MG CHEW TAB PO PRN (20:55)
[2024-10-26] VITALS (29 sets, daily range): BP systolic 91–108; BP diastolic 51–56; TEMP 97.9–98.4; O2SAT 87–96
[2024-10-26 05:29] LABS: BASO % 0.1 % (0.0-1.0); HEMOGLOBIN 10.8 g/dl (13.5-17.5); LYMPH # 0.7 10^3/uL (1.5-5.0); LYMPH % 4.7 % (24.0-44.0); MEAN CORPUSCULAR HEMOGLOBIN 32.2 pg (27.0-33.0); MEAN CORPUSCULAR HGB CONC 32.7 g/dl (32.0-36.5); MEAN CORPUSCULAR VOLUME 98.5 fl (80.0-96.0); MONO # 0.4 10^3/uL (0.0-0.8); MONO % 3.1 % (2.0-8.0); NEUTROPHILS # 12.6 10^3/uL (1.5-8.5); NEUTROPHILS % 90.9 % (36.0-66.0); PLATELET COUNT, AUTOMATED 195 10^3/uL (150-450); RED BLOOD COUNT 3.35 10^6/uL (4.30-6.10); WHITE BLOOD COUNT 13.9 10^3/uL (4.0-10.0)
[2024-10-26 05:56] LABS: BLOOD UREA NITROGEN 21 MG/DL (9-23); CALCIUM LEVEL 8.1 MG/DL (8.3-10.6); CARBON DIOXIDE LEVEL 28 MMOL/L (20-31); CHLORIDE LEVEL 108 MMOL/L (98-107); CREATININE FOR GFR 0.88 MG/DL (0.70-1.30); GLOMERULAR FILTRATION RATE > 90.0 (>49); GLUCOSE, FASTING 164 MG/DL (74-106); POTASSIUM SERUM 4.3 MMOL/L (3.5-5.1); SODIUM LEVEL 144 MMOL/L (136-145)
[2024-10-26] MEDS: BACTRIM 160MG/800MG DS TAB PO SCH (08:02)
[2024-10-26 08:53] LABS: PROCALCITONIN 0.08 ng/ml
[2024-10-26] MEDS ORDERED: ELIQ5TAB PO (09:35)
[2024-10-26] MEDS ORDERED: VARIBAR PUDDING 40% w/v 230ML TUBE As Ordered ONE (12:20)
[2024-10-26] MEDS ORDERED: E-Z-PAQUE 96% w/w SUSP 176GM BTL As Ordered ONE (12:20)
[2024-10-26] MEDS ORDERED: VARIBAR NECTAR 40% w/v 240ML SUSP BTL As Ordered ONE (12:20)
[2024-10-26] MEDS ORDERED: BARIUM SULFATE 700 MG TABLET (E-Z-DISK) As Ordered ONE (12:21)
[2024-10-27] VITALS (31 sets, daily range): BP systolic 93–106; BP diastolic 52–57; TEMP 97–98.4; O2SAT 89–97
[2024-10-27 05:52] LABS: BASO % 0.1 % (0.0-1.0); HEMATOCRIT 33.6 % (42.0-52.0); HEMOGLOBIN 10.6 g/dl (13.5-17.5); LYMPH # 0.6 10^3/uL (1.5-5.0); LYMPH % 5.1 % (24.0-44.0); MEAN CORPUSCULAR HEMOGLOBIN 31.4 pg (27.0-33.0); MEAN CORPUSCULAR HGB CONC 31.5 g/dl (32.0-36.5); MEAN CORPUSCULAR VOLUME 99.4 fl (80.0-96.0); MONO # 0.3 10^3/uL (0.0-0.8); MONO % 2.5 % (2.0-8.0); NEUTROPHILS # 10.7 10^3/uL (1.5-8.5); PLATELET COUNT, AUTOMATED 188 10^3/uL (150-450); RED BLOOD COUNT 3.38 10^6/uL (4.30-6.10); WHITE BLOOD COUNT 11.8 10^3/uL (4.0-10.0)
[2024-10-27 06:24] LABS: BLOOD UREA NITROGEN 23 MG/DL (9-23); CARBON DIOXIDE LEVEL 28 MMOL/L (20-31); CHLORIDE LEVEL 107 MMOL/L (98-107); CREATININE FOR GFR 0.91 MG/DL (0.70-1.30); GLOMERULAR FILTRATION RATE > 90.0 (>49); GLUCOSE, FASTING 135 MG/DL (74-106); MAGNESIUM LEVEL 2.4 MG/DL (1.8-2.4); POTASSIUM SERUM 4.3 MMOL/L (3.5-5.1); SODIUM LEVEL 142 MMOL/L (136-145)
[2024-10-27] MEDS: dexAMETHasone 20MG/5ML VIAL IV SCH (20:45)
[2024-10-28] VITALS (32 sets, daily range): BP systolic 91–121; BP diastolic 51–64; TEMP 96.9–98; O2SAT 88–98
[2024-10-28] MEDS: COSYNTROPIN 0.25 MG/ML 1ML VIAL IV ONE (08:47)
[2024-10-28 08:48] LABS: BASO % 0.1 % (0.0-1.0); HEMATOCRIT 36.1 % (42.0-52.0); HEMOGLOBIN 11.8 g/dl (13.5-17.5); LYMPH # 0.9 10^3/uL (1.5-5.0); LYMPH % 10.1 % (24.0-44.0); MEAN CORPUSCULAR HEMOGLOBIN 32.5 pg (27.0-33.0); MEAN CORPUSCULAR HGB CONC 32.7 g/dl (32.0-36.5); MEAN CORPUSCULAR VOLUME 99.4 fl (80.0-96.0); MONO # 0.4 10^3/uL (0.0-0.8); MONO % 4.4 % (2.0-8.0); NEUTROPHILS # 7.8 10^3/uL (1.5-8.5); NEUTROPHILS % 83.4 % (36.0-66.0); PLATELET COUNT, AUTOMATED 171 10^3/uL (150-450); RED BLOOD COUNT 3.63 10^6/uL (4.30-6.10); WHITE BLOOD COUNT 9.3 10^3/uL (4.0-10.0)
[2024-10-28 09:18] LABS: BLOOD UREA NITROGEN 19 MG/DL (9-23); CALCIUM LEVEL 8.3 MG/DL (8.3-10.6); CARBON DIOXIDE LEVEL 28 MMOL/L (20-31); CHLORIDE LEVEL 107 MMOL/L (98-107); CREATININE FOR GFR 0.79 MG/DL (0.70-1.30); GLOMERULAR FILTRATION RATE > 90.0 (>49); GLUCOSE, FASTING 98 MG/DL (74-106); POTASSIUM SERUM 3.9 MMOL/L (3.5-5.1); SODIUM LEVEL 141 MMOL/L (136-145)
[2024-10-28] MEDS: DIGOXIN 0.25 MG TAB PO SCH (15:16)
[2024-10-28 20:02] LABS: FUNGITELL INTERPRETATION NEGATIVE (NEGATIVE); FUNGITELL, SERUM < 31 pg/mL (<60)
[2024-10-28] MEDS ORDERED: dexAMETHasone 20MG/5ML VIAL IV SCH (21:00)
[2024-10-28] MEDS ORDERED: HYDROCORTISONE 100MG/2ML VIAL IV SCH (21:00)
[2024-10-28] MEDS: HYDROCORTISONE 100MG/2ML VIAL IV SCH (21:21)
[2024-10-29] VITALS (24 sets, daily range): BP systolic 88–110; BP diastolic 52–62; TEMP 94–98.1; O2SAT 85–98
[2024-10-29 08:31] LABS: BASO % 0.1 % (0.0-1.0); EOS % 0.4 % (0.0-3.0); HEMATOCRIT 35.9 % (42.0-52.0); LYMPH # 0.8 10^3/uL (1.5-5.0); LYMPH % 10.4 % (24.0-44.0); MEAN CORPUSCULAR HEMOGLOBIN 32.8 pg (27.0-33.0); MEAN CORPUSCULAR HGB CONC 33.4 g/dl (32.0-36.5); MEAN CORPUSCULAR VOLUME 98.1 fl (80.0-96.0); MONO # 0.4 10^3/uL (0.0-0.8); MONO % 4.7 % (2.0-8.0); NEUTROPHILS # 6.5 10^3/uL (1.5-8.5); NEUTROPHILS % 81.7 % (36.0-66.0); PLATELET COUNT, AUTOMATED 161 10^3/uL (150-450); RED BLOOD COUNT 3.66 10^6/uL (4.30-6.10)
[2024-10-29 08:58] LABS: BLOOD UREA NITROGEN 19 MG/DL (9-23); CALCIUM LEVEL 7.9 MG/DL (8.3-10.6); CARBON DIOXIDE LEVEL 29 MMOL/L (20-31); CHLORIDE LEVEL 105 MMOL/L (98-107); CREATININE FOR GFR 0.86 MG/DL (0.70-1.30); GLOMERULAR FILTRATION RATE > 90.0 (>49); GLUCOSE, FASTING 99 MG/DL (74-106); MAGNESIUM LEVEL 2.4 MG/DL (1.8-2.4); POTASSIUM SERUM 4.2 MMOL/L (3.5-5.1); SODIUM LEVEL 140 MMOL/L (136-145)
[2024-10-29] MEDS: DIGOXIN 0.25 MG TAB PO SCH (10:35)
[2024-10-29] MEDS: ENOXAPARIN 100MG/1ML SYRINGE (J1650 PER 10MG) SC ONE (11:54)
[2024-10-29 17:58] LABS: ASPERGILLUS FLAVUS ABY Negative (Negative); ASPERGILLUS FUMIGATUS ABY Negative (Negative); ASPERGILLUS NIGER ABY Negative (Negative)
[2024-10-30] VITALS (8 sets, daily range): BP systolic 82–113; BP diastolic 50–64; TEMP 96.8–98.2; O2SAT 91–98
[2024-10-30 04:24] LABS: BASO % 0.1 % (0.0-1.0); EOS % 0.4 % (0.0-3.0); HEMATOCRIT 34.2 % (42.0-52.0); HEMOGLOBIN 11.3 g/dl (13.5-17.5); LYMPH % 10.2 % (24.0-44.0); MEAN CORPUSCULAR HEMOGLOBIN 32.7 pg (27.0-33.0); MEAN CORPUSCULAR VOLUME 98.8 fl (80.0-96.0); MONO # 0.4 10^3/uL (0.0-0.8); MONO % 4.3 % (2.0-8.0); NEUTROPHILS # 7.8 10^3/uL (1.5-8.5); NEUTROPHILS % 82.2 % (36.0-66.0); PLATELET COUNT, AUTOMATED 162 10^3/uL (150-450); RED BLOOD COUNT 3.46 10^6/uL (4.30-6.10); WHITE BLOOD COUNT 9.5 10^3/uL (4.0-10.0)
[2024-10-30 04:50] LABS: BLOOD UREA NITROGEN 20 MG/DL (9-23); CALCIUM LEVEL 7.7 MG/DL (8.3-10.6); CARBON DIOXIDE LEVEL 28 MMOL/L (20-31); CHLORIDE LEVEL 107 MMOL/L (98-107); CREATININE FOR GFR 0.79 MG/DL (0.70-1.30); GLOMERULAR FILTRATION RATE > 90.0 (>49); GLUCOSE, FASTING 106 MG/DL (74-106); MAGNESIUM LEVEL 2.3 MG/DL (1.8-2.4); POTASSIUM SERUM 4.1 MMOL/L (3.5-5.1); SODIUM LEVEL 141 MMOL/L (136-145)
[2024-10-30] MEDS ORDERED: LIDOCAINE 2% 100MG/5ML SDV (FOR ANES.) As Ordered ONE (11:28)
[2024-10-30] MEDS ORDERED: propofoL 200 MG/20 ML VIAL As Ordered ONE (11:28)
[2024-10-30] MEDS ORDERED: ONDANSETRON 4MG 2ML VIAL As Ordered ONE (11:28)
[2024-10-30] MEDS ORDERED: ROCURONIUM BROMIDE 50MG/5ML VIAL As Ordered ONE (11:28)
[2024-10-30] MEDS ORDERED: SUGAMMADEX SODIUM 500 MG/5 ML VIAL As Ordered ONE (11:28)
[2024-10-30] MEDS ORDERED: fentaNYL 100 MCG/2 ML INJECTION As Ordered ONE (11:33)
[2024-10-30] MEDS ORDERED: MIDAZOLAM INJ 2MG/2ML VIAL As Ordered ONE (11:33)
[2024-10-30] MEDS: HYDROCORTISONE 100MG/2ML VIAL IV SCH (12:00)
[2024-10-30] MEDS: CETACAINE SPRAY 5GM As Ordered ONE (12:51)
[2024-10-30] MEDS ORDERED: ACETAMINOPHEN 1000MG/100ML IV BAG As Ordered ONE (12:52)
[2024-10-30] MEDS ORDERED: PHENYLephrine 500MCG 5ML (100MCG/ML) SYRINGE As Ordered ONE (12:53)
[2024-10-30] MEDS ORDERED: ONDANSETRON 4MG 2ML VIAL IV PRN (13:10)
[2024-10-30] MEDS ORDERED: fentaNYL 100 MCG/2 ML INJECTION IV PRN (13:10)
[2024-10-30] MEDS ORDERED: HYDROMORPHONE HCL 0.5 MG/ 0.5 ML SYRINGE IV PRN (13:10)
[2024-10-30] MEDS ORDERED: oxyCODONE 5MG TAB PO PRN (13:10)
[2024-10-30] MEDS: ALBUTEROL SULFATE 2.5MG/0.5ML INH CONCENTRATE NEB SOLN NEB ONE (13:15)
[2024-10-30] MEDS: ENOXAPARIN 100MG/1ML SYRINGE (J1650 PER 10MG) SC SCH (17:03)
[2024-10-31] VITALS (8 sets, daily range): BP systolic 80–110; BP diastolic 50–68; TEMP 96.9–97.4; O2SAT 92–95
[2024-10-31 04:43] LABS: BASO % 0.1 % (0.0-1.0); EOS % 0.4 % (0.0-3.0); HEMATOCRIT 36.1 % (42.0-52.0); HEMOGLOBIN 11.7 g/dl (13.5-17.5); LYMPH # 0.7 10^3/uL (1.5-5.0); LYMPH % 8.1 % (24.0-44.0); MEAN CORPUSCULAR HEMOGLOBIN 32.1 pg (27.0-33.0); MEAN CORPUSCULAR HGB CONC 32.4 g/dl (32.0-36.5); MEAN CORPUSCULAR VOLUME 98.9 fl (80.0-96.0); MONO # 0.4 10^3/uL (0.0-0.8); NEUTROPHILS # 7.5 10^3/uL (1.5-8.5); NEUTROPHILS % 84.4 % (36.0-66.0); PLATELET COUNT, AUTOMATED 161 10^3/uL (150-450); RED BLOOD COUNT 3.65 10^6/uL (4.30-6.10); WHITE BLOOD COUNT 8.9 10^3/uL (4.0-10.0)
[2024-10-31 04:57] LABS: BLOOD UREA NITROGEN 19 MG/DL (9-23); CALCIUM LEVEL 7.8 MG/DL (8.3-10.6); CARBON DIOXIDE LEVEL 27 MMOL/L (20-31); CHLORIDE LEVEL 103 MMOL/L (98-107); CREATININE FOR GFR 0.84 MG/DL (0.70-1.30); GLOMERULAR FILTRATION RATE > 90.0 (>49); GLUCOSE, FASTING 103 MG/DL (74-106); MAGNESIUM LEVEL 2.3 MG/DL (1.8-2.4); POTASSIUM SERUM 4.2 MMOL/L (3.5-5.1); SODIUM LEVEL 138 MMOL/L (136-145)
[2024-10-31] MEDS: HYDROCORTISONE 10 MG TAB PO SCH (16:49)
[2024-10-31] MEDS ORDERED: ENOXAPARIN 100MG/1ML SYRINGE (J1650 PER 10MG) SC ONE (17:00)
[2024-10-31] MEDS: APIXABAN 5 MG TAB PO SCH (20:43)
[2024-11-01 00:33] LABS: HISTO GAL'MANNAN AG UR QNT < 0.2 ng/mL (<0.2)
[2024-11-01 03:26] VITALS: BP 92/50; TEMP 97; O2SAT 93
[2024-11-01 06:12] LABS: BASO % 0.3 % (0.0-1.0); EOS # 0.2 10^3/uL (0.0-0.5); EOS % 2.2 % (0.0-3.0); HEMATOCRIT 33.8 % (42.0-52.0); HEMOGLOBIN 11.1 g/dl (13.5-17.5); LYMPH # 1.4 10^3/uL (1.5-5.0); LYMPH % 19.8 % (24.0-44.0); MEAN CORPUSCULAR HEMOGLOBIN 32.4 pg (27.0-33.0); MEAN CORPUSCULAR HGB CONC 32.8 g/dl (32.0-36.5); MEAN CORPUSCULAR VOLUME 98.5 fl (80.0-96.0); MONO # 0.4 10^3/uL (0.0-0.8); MONO % 5.3 % (2.0-8.0); NEUTROPHILS # 4.9 10^3/uL (1.5-8.5); NEUTROPHILS % 67.9 % (36.0-66.0); PLATELET COUNT, AUTOMATED 147 10^3/uL (150-450); RED BLOOD COUNT 3.43 10^6/uL (4.30-6.10); WHITE BLOOD COUNT 7.2 10^3/uL (4.0-10.0)
[2024-11-01 06:34] LABS: BLOOD UREA NITROGEN 17 MG/DL (9-23); CALCIUM LEVEL 7.3 MG/DL (8.3-10.6); CARBON DIOXIDE LEVEL 28 MMOL/L (20-31); CHLORIDE LEVEL 105 MMOL/L (98-107); GLOMERULAR FILTRATION RATE > 90.0 (>49); GLUCOSE, FASTING 80 MG/DL (74-106); MAGNESIUM LEVEL 2.2 MG/DL (1.8-2.4); POTASSIUM SERUM 3.7 MMOL/L (3.5-5.1); SODIUM LEVEL 141 MMOL/L (136-145)
[2024-11-01] MEDS ORDERED: PILL CUTTER 1 EACH XX PRN (07:45)
[2024-11-01 08:22] VITALS: BP 114/60; TEMP 97.5; O2SAT 94
[2024-11-01] MEDS ORDERED: APIXABAN 5 MG TAB PO SCH (09:00)
[2024-11-01] MEDS ORDERED: LEVO50TA5 PO (10:09)
[2024-11-01] MEDS ORDERED: ELIQ5TAB PO (10:09)
[2024-11-01] MEDS ORDERED: BACTDSTA PO (10:09)
[2024-11-01] MEDS ORDERED: DIGO0.253 PO (10:09)
[2024-11-01] MEDS ORDERED: HYDR-4468 PO (10:09)
[2024-11-01] MEDS ORDERED: ADVA1AER8 INH (10:15)
[2024-11-01] MEDS ORDERED: SPIR1CAP INH (10:15)
[2024-11-01] MEDS ORDERED: IPRA0.00 INH (10:15)
[2024-11-01] MEDS ORDERED: NEBU1EAC78 MC (10:15)
[2024-11-01] MEDS ORDERED: PANT40TA29 PO (10:40)
[2024-11-01 12:00] VITALS: BP 114/54; TEMP 97.2; O2SAT 94
[2024-11-01] MEDS ORDERED: HYDROCORTISONE 10 MG TAB PO SCH (17:00)
[2024-11-01] MEDS ORDERED: ADVAIR HFA 115/21MCG INHALER INH SCH (20:00)
[2024-11-02] MEDS ORDERED: TIOTROPIUM BROM 2.5MCG/ACTUATION 4GM INH INH SCH (08:00)
== END 2024-11-01 14:32 | disposition home health service (06) | DRG 133 ==
LOC: M ED 12:57 → M ED INP 17:26 → M PCU 20:03
PROVIDERS: ADMIT Internal Medicine; ATTEND Student in an Organized Health Care Education/Training Program
PROC: 0B9J8ZX Drainage of Left Lower Lung Lobe, Via Natural or Artificial Opening Endoscopic, Diagnostic (ICD-10-PCS; principal; 2024-10-30 13:00)
DX: J96.21 Acute and chronic respiratory failure with hypoxia (principal); I26.99 Other pulmonary embolism without acute cor pulmonale; J84.9 Interstitial pulmonary disease, unspecified; E27.3 Drug-induced adrenocortical insufficiency; I48.0 Paroxysmal atrial fibrillation; I48.92 Unspecified atrial flutter; K21.9 Gastro-esophageal reflux disease without esophagitis; E03.9 Hypothyroidism, unspecified; Z79.52 Long term (current) use of systemic steroids; K59.00 Constipation, unspecified; K64.8 Other hemorrhoids; Z88.0 Allergy status to penicillin; Z79.899 Other long term (current) drug therapy; Z79.890 Hormone replacement therapy; Z87.891 Personal history of nicotine dependence

== ENCOUNTER → 2024-12-03 | Outpatient (CLI) | payer OTHER ==
[~2024-12-03] MED LIST changes: +ADVA1AER8 INH; +BACTDSTA PO; +DIGO0.253 PO; +ELIQ5TAB PO; +HYDR-4468 PO; +LEVO50TA5 PO; +NEBU1EAC78 MC; +OXYM15SP2; +SPIR1CAP INH; +SYNT25TA PO
== END ==
LOC: M EKG 15:16
PROVIDERS: ATTEND Registered Nurse
DX: I48.92 Unspecified atrial flutter (principal)

== ENCOUNTER 2025-01-20 14:15 | Observation (INO) | payer OTHER ==
[~2025-01-20] VITALS: Ht 177.8 cm; Wt 100.8 kg
[2025-01-20 14:48] LABS: BASO # 0.1 10^3/uL (0.0-0.2); BASO % 0.5 % (0.0-1.0); EOS # 0.0 10^3/uL (0.0-0.5); EOS % 0.3 % (0.0-3.0); LYMPH # 0.6 10^3/uL (1.5-5.0); LYMPH % 5.4 % (24.0-44.0); MONO # 0.4 10^3/uL (0.0-0.8); MONO % 3.2 % (2.0-8.0); NEUTROPHILS # 9.9 10^3/uL (1.5-8.5); NEUTROPHILS % 89.2 % (36.0-66.0); PLATELET COUNT, AUTOMATED 190 10^3/uL (150-450)
[2025-01-20] MEDS: ASPIRIN 81 MG CHEWABLE TABLET PO ONE (14:53)
[2025-01-20] MEDS: MORPHINE 2 MG/ML 1 ML VIAL IV ONE (15:00)
[2025-01-20 15:08] LABS: INR 1.01
[2025-01-20 15:19] LABS: CK-MB VALUE MASS 2.1 NG/ML (<3.6)
[2025-01-20 15:21] LABS: DIGOXIN LEVEL 1.4 NG/ML (0.8-2.0)
[2025-01-20 15:25] LABS: CALCIUM LEVEL 8.8 MG/DL (8.3-10.6); CARBON DIOXIDE LEVEL 26 MMOL/L (20-31); CHLORIDE LEVEL 101 MMOL/L (98-107); CREATININE FOR GFR 0.93 MG/DL (0.70-1.30); GLOMERULAR FILTRATION RATE > 90.0 (>49); POTASSIUM SERUM 4.2 MMOL/L (3.5-5.1); SODIUM LEVEL 140 MMOL/L (136-145)
[2025-01-20 15:27] LABS: CPK CREATINE PHOSPHOKINASE 44 U/L (46-171); MB/CK RELATIVE INDEX 4.77 (< OR =4)
[2025-01-20] MEDS ORDERED: MYCO500T PO (16:25)
[2025-01-20] MEDS ORDERED: CALC-356 PO (16:25)
[2025-01-20] MEDS ORDERED: LEVO50TA5 PO (17:34)
[2025-01-20] MEDS ORDERED: ELIQ5TAB PO (17:34)
[2025-01-20] MEDS ORDERED: DIGO0.253 PO (17:34)
[2025-01-20] MEDS ORDERED: HOME MED LIST COMPLETE! XX SCH (17:35)
[2025-01-20] MEDS ORDERED: ISOVUE-370 76% 100 ML VIAL As Ordered ONE (17:37)
[2025-01-20 19:24] LABS: CPK CREATINE PHOSPHOKINASE 34.0 U/L (46-171)
[2025-01-20 19:25] LABS: CK-MB VALUE MASS 2.2 NG/ML (<3.6); MB/CK RELATIVE INDEX 6.47 (< OR =4)
[2025-01-20 19:33] LABS: CK-MB VALUE MASS 2.1 NG/ML (<3.6); CPK CREATINE PHOSPHOKINASE 34.0 U/L (46-171); MB/CK RELATIVE INDEX 6.17 (< OR =4)
[2025-01-20] MEDS ORDERED: ACETAMINOPHEN 325 MG TAB PO PRN (20:25)
[2025-01-20] MEDS ORDERED: MAALOX 30 ML SUSP *UDC PO PRN (20:25)
[2025-01-20] MEDS ORDERED: MOM 30 ML SUSPENSION UDC PO PRN (20:25)
[2025-01-20 22:00] VITALS: O2SAT 95
[2025-01-20 22:08] VITALS: BP 125/68; TEMP 97.1; O2SAT 98
[2025-01-20] MEDS: DOCUSATE SODIUM 100 MG CAPSULE PO SCH (22:27)
[2025-01-20] MEDS: APIXABAN 5 MG TAB PO SCH (22:27)
[2025-01-20] MEDS: MYCOPHENOLATE MOFETIL 250 MG CAP (J7517) PO SCH (22:43)
[2025-01-20 23:00] VITALS: O2SAT 96
[2025-01-21] VITALS (18 sets, daily range): BP systolic 96–115; BP diastolic 57–65; TEMP 96.9–97.8; O2SAT 92–97
[2025-01-21 04:44] LABS: PLATELET COUNT, AUTOMATED 185 10^3/uL (150-450)
[2025-01-21 05:29] LABS: CALCIUM LEVEL 8.6 MG/DL (8.3-10.6); CARBON DIOXIDE LEVEL 28 MMOL/L (20-31); CHLORIDE LEVEL 104 MMOL/L (98-107); CREATININE FOR GFR 0.93 MG/DL (0.70-1.30); GLOMERULAR FILTRATION RATE > 90.0 (>49); MAGNESIUM LEVEL 2.3 MG/DL (1.8-2.4); POTASSIUM SERUM 3.5 MMOL/L (3.5-5.1); SODIUM LEVEL 142 MMOL/L (136-145)
[2025-01-21] MEDS: LEVOTHYROXINE 50 MCG TABLET (0.05 MG) PO SCH (06:45)
[2025-01-21] MEDS: PANTOPRAZOLE 40MG VIAL IV SCH (10:24)
[2025-01-21] MEDS: predniSONE 20 MG TAB PO SCH (10:25)
[2025-01-21] MEDS: DIGOXIN 0.25 MG TAB PO SCH (10:25)
[2025-01-22] MEDS ORDERED: BACTRIM 160MG/800MG DS TAB PO SCH (09:00)
== END 2025-01-21 14:31 | disposition home or self-care (01) ==
LOC: M ED 14:15 → EDBD 14:15 → M ED INP 14:16 → M PCU 22:02
PROVIDERS: ADMIT Student in an Organized Health Care Education/Training Program; ATTEND Student in an Organized Health Care Education/Training Program
DX: I48.0 Paroxysmal atrial fibrillation (principal); J84.9 Interstitial pulmonary disease, unspecified; J96.11 Chronic respiratory failure with hypoxia; E03.9 Hypothyroidism, unspecified; K21.9 Gastro-esophageal reflux disease without esophagitis; Z86.711 Personal history of pulmonary embolism; Z79.01 Long term (current) use of anticoagulants; Z79.52 Long term (current) use of systemic steroids; Z79.899 Other long term (current) drug therapy
CPT/HCPCS: 36415; 71045; 71275; 80048; 80162; 82550; 82553; 83735; 83880; 84145; 84484; 85025; 85027; 85610; 85730; 93005; 93041; 94760; 96374; 97161; 99285; J2470; J7512; J7517; Q9967

== ENCOUNTER → 2025-01-25 | Outpatient (CLI) | payer OTHER ==
[~2025-01-25] MED LIST changes: +CALC-356 PO; +MYCO500T PO
[2025-01-25 11:23] LABS: PLATELET COUNT, AUTOMATED 196 10^3/uL (150-450)
[2025-01-25 11:52] LABS: ALT/SGPT 30 U/L (7.0-40); AST/SGOT 18 U/L (<34); CALCIUM LEVEL 8.6 MG/DL (8.3-10.6); CARBON DIOXIDE LEVEL 26 MMOL/L (20-31); CHLORIDE LEVEL 104 MMOL/L (98-107); CREATININE FOR GFR 0.92 MG/DL (0.70-1.30); GLOMERULAR FILTRATION RATE > 90.0 (>49); POTASSIUM SERUM 3.5 MMOL/L (3.5-5.1); SODIUM LEVEL 143 MMOL/L (136-145)
== END ==
LOC: M LAB 10:26
PROVIDERS: ATTEND Internal Medicine Pulmonary Disease
DX: J84.9 Interstitial pulmonary disease, unspecified (principal)

== ENCOUNTER → 2025-03-02 | Outpatient (REF) | payer OTHER ==
[2025-03-02 17:23] LABS: BASO # 0.1 10^3/uL (0.0-0.2); BASO % 0.6 % (0.0-1.0); EOS # 0.1 10^3/uL (0.0-0.5); EOS % 0.8 % (0.0-3.0); LYMPH # 1.1 10^3/uL (1.5-5.0); LYMPH % 8.5 % (24.0-44.0); MONO # 1.0 10^3/uL (0.0-0.8); MONO % 7.6 % (2.0-8.0); NEUTROPHILS # 10.3 10^3/uL (1.5-8.5); NEUTROPHILS % 81.4 % (36.0-66.0); PLATELET COUNT, AUTOMATED 223 10^3/uL (150-450)
[2025-03-02 17:40] LABS: ESTIMATED AVERAGE GLUCOSE 114.0 MG/DL (60-110)
[2025-03-02 17:46] LABS: CHOLESTEROL LEVEL 236.0 MG/DL (<200); CHOLESTEROL RISK RATIO 5.42 (<5); LDL CHOLESTEROL 138.1 MG/DL (<100); MAGNESIUM LEVEL 2.1 MG/DL (1.8-2.4); NON-HDL-C 192.5 MG/DL; PSA SCREENING 0.99 NG/ML (< 4.00); TRIGLYCERIDES LEVEL 272.0 MG/DL (<150)
[2025-03-02 17:49] LABS: VITAMIN B12 LEVEL 350.0 PG/ML (211-911)
== END ==
LOC: M LAB REF 16:26
PROVIDERS: ATTEND Nurse Practitioner Family
DX: E03.9 Hypothyroidism, unspecified (principal); E66.811 Obesity, class 1; R73.9 Hyperglycemia, unspecified; I48.0 Paroxysmal atrial fibrillation; D64.9 Anemia, unspecified; Z13.89 Encounter for screening for other disorder

== ENCOUNTER → 2025-03-08 | Outpatient (CLI) | payer OTHER ==
[2025-03-08 12:35] LABS: PLATELET COUNT, AUTOMATED 193 10^3/uL (150-450)
[2025-03-08 13:01] LABS: ALT/SGPT 26 U/L (7.0-40); AST/SGOT 19 U/L (<34); CALCIUM LEVEL 8.5 MG/DL (8.3-10.6); CARBON DIOXIDE LEVEL 26 MMOL/L (20-31); CHLORIDE LEVEL 100 MMOL/L (98-107); CREATININE FOR GFR 0.89 MG/DL (0.70-1.30); GLOMERULAR FILTRATION RATE > 90.0 (>49); POTASSIUM SERUM 3.4 MMOL/L (3.5-5.1); SODIUM LEVEL 138 MMOL/L (136-145)
== END ==
LOC: M LAB 10:33
PROVIDERS: ATTEND Internal Medicine Pulmonary Disease
DX: J84.9 Interstitial pulmonary disease, unspecified (principal)

== ENCOUNTER → 2025-04-06 | Outpatient (CLI) | payer OTHER | LOC: M CARPUL 09:45 | PROVIDERS: ATTEND Registered Nurse | DX: R94.31 Abnormal electrocardiogram [ECG] [EKG] (principal) | CPT/HCPCS: 78451; 93017; A9500; J2785 ==

== ENCOUNTER 2025-04-19 08:32 | Emergency (ER) | payer OTHER ==
[~2025-04-19] VITALS: Ht 175.3 cm; Wt 99.1 kg
[2025-04-19 09:15] LABS: BASO # 0.0 10^3/uL (0.0-0.2); BASO % 0.3 % (0.0-1.0); EOS # 0.1 10^3/uL (0.0-0.5); EOS % 1.0 % (0.0-3.0); LYMPH # 1.0 10^3/uL (1.5-5.0); LYMPH % 11.4 % (24.0-44.0); MONO # 0.8 10^3/uL (0.0-0.8); MONO % 8.4 % (2.0-8.0); NEUTROPHILS # 7.0 10^3/uL (1.5-8.5); NEUTROPHILS % 78.0 % (36.0-66.0); PLATELET COUNT, AUTOMATED 194 10^3/uL (150-450)
[2025-04-19 09:39] LABS: ALT/SGPT 33 U/L (7.0-40); AST/SGOT 39 U/L (<34); CALCIUM LEVEL 8.7 MG/DL (8.3-10.6); CARBON DIOXIDE LEVEL 27 MMOL/L (20-31); CHLORIDE LEVEL 102 MMOL/L (98-107); CK-MB VALUE MASS 1.2 NG/ML (<3.6); CREATININE FOR GFR 0.83 MG/DL (0.70-1.30); GLOMERULAR FILTRATION RATE > 90.0 (>49); MAGNESIUM LEVEL 1.9 MG/DL (1.8-2.4); POTASSIUM SERUM 3.8 MMOL/L (3.5-5.1); SODIUM LEVEL 140 MMOL/L (136-145)
[2025-04-19 09:42] LABS: THYROXINE (T4) 7.7 UG/DL (4.5-10.9)
[2025-04-19 09:43] LABS: T UPTAKE 28.5 % (22.5-37.0)
[2025-04-19 09:44] LABS: CPK CREATINE PHOSPHOKINASE 68 U/L (46-171); MB/CK RELATIVE INDEX 1.76 (< OR =4)
[2025-04-19 09:52] LABS: INR 1.01
[2025-04-19] MEDS ORDERED: BACT800T5 PO (10:45)
[2025-04-19] MEDS ORDERED: PRED5TA PO (10:45)
[2025-04-19] MEDS ORDERED: DOCU100C16 PO (10:47)
[2025-04-19] MEDS ORDERED: HOME MED LIST COMPLETE! XX SCH (10:50)
[2025-04-19 13:08] LABS: DIGOXIN LEVEL 0.7 NG/ML (0.8-2.0)
[2025-04-19 13:56] VITALS: BP 116/58; TEMP 98.9; O2SAT 96
== END 2025-04-19 14:00 | disposition home or self-care (01) ==
LOC: EDBD 08:32 → M ED 08:32
DX: R00.2 Palpitations (principal); I48.91 Unspecified atrial fibrillation; E03.9 Hypothyroidism, unspecified; Z87.891 Personal history of nicotine dependence; Z88.0 Allergy status to penicillin; Z79.01 Long term (current) use of anticoagulants; Z79.899 Other long term (current) drug therapy; Z79.52 Long term (current) use of systemic steroids

== ENCOUNTER 2025-04-24 09:41 | Emergency (ER) | payer OTHER ==
[~2025-04-24] VITALS: Ht 175.3 cm; Wt 100.3 kg
[~2025-04-24 09:41] MED LIST changes: +BACT800T5 PO; +DOCU100C16 PO; +PRED5TA PO
[2025-04-24 10:23] LABS: PLATELET COUNT, AUTOMATED 195 10^3/uL (150-450)
[2025-04-24 10:46] LABS: CALCIUM LEVEL 8.8 MG/DL (8.3-10.6); CARBON DIOXIDE LEVEL 26.0 MMOL/L (20-31); CHLORIDE LEVEL 104.0 MMOL/L (98-107); CREATININE FOR GFR 1.04 MG/DL (0.70-1.30); GLOMERULAR FILTRATION RATE 81.2 (>49); POTASSIUM SERUM 3.6 MMOL/L (3.5-5.1); SODIUM LEVEL 143.0 MMOL/L (136-145)
[2025-04-24 11:18] LABS: MAGNESIUM LEVEL 2.0 MG/DL (1.8-2.4)
[2025-04-24 11:19] LABS: DIGOXIN LEVEL 0.7 NG/ML (0.8-2.0)
[2025-04-24 11:22] LABS: FREE T4 1.22 NG/DL (0.89-1.76)
[2025-04-24 16:05] VITALS: BP 122/63; TEMP 98.2; O2SAT 98
== END 2025-04-24 16:07 | disposition home or self-care (01) ==
LOC: EDBD 09:41 → M ED 09:41
DX: I48.91 Unspecified atrial fibrillation (principal); J44.9 Chronic obstructive pulmonary disease, unspecified; K21.9 Gastro-esophageal reflux disease without esophagitis; K57.30 Diverticulosis of large intestine without perforation or abscess without bleeding; K76.0 Fatty (change of) liver, not elsewhere classified; Z86.711 Personal history of pulmonary embolism; Z87.891 Personal history of nicotine dependence; Z88.0 Allergy status to penicillin; Z79.01 Long term (current) use of anticoagulants; Z79.52 Long term (current) use of systemic steroids; Z79.899 Other long term (current) drug therapy

== ENCOUNTER 2025-04-25 08:07 | Observation (INO) | payer OTHER ==
[~2025-04-25] VITALS: Ht 175.3 cm; Wt 102.6 kg
[2025-04-25] MEDS ORDERED: HOME MED LIST COMPLETE! XX SCH (09:50)
[2025-04-25] MEDS ORDERED: DOCUSATE SODIUM 100 MG CAPSULE PO PRN (10:20)
[2025-04-25] MEDS: LEVOTHYROXINE 50 MCG TABLET (0.05 MG) PO SCH (11:16)
[2025-04-25] MEDS: PANTOPRAZOLE 40MG TAB PO SCH (11:16)
[2025-04-25] MEDS: APIXABAN 5 MG TAB PO SCH (11:16)
[2025-04-25 11:29] LABS: BASO # 0.0 10^3/uL (0.0-0.2); BASO % 0.4 % (0.0-1.0); EOS # 0.1 10^3/uL (0.0-0.5); EOS % 1.1 % (0.0-3.0); LYMPH # 1.3 10^3/uL (1.5-5.0); LYMPH % 13.5 % (24.0-44.0); MONO # 0.7 10^3/uL (0.0-0.8); MONO % 7.4 % (2.0-8.0); NEUTROPHILS # 7.6 10^3/uL (1.5-8.5); NEUTROPHILS % 76.9 % (36.0-66.0); PLATELET COUNT, AUTOMATED 198 10^3/uL (150-450)
[2025-04-25 11:50] LABS: ALT/SGPT 35 U/L (7.0-40); AST/SGOT 36 U/L (<34); CALCIUM LEVEL 8.7 MG/DL (8.3-10.6); CARBON DIOXIDE LEVEL 27 MMOL/L (20-31); CHLORIDE LEVEL 102 MMOL/L (98-107); CREATININE FOR GFR 0.88 MG/DL (0.70-1.30); GLOMERULAR FILTRATION RATE > 90.0 (>49); MAGNESIUM LEVEL 2.1 MG/DL (1.8-2.4); POTASSIUM SERUM 3.6 MMOL/L (3.5-5.1); SODIUM LEVEL 140 MMOL/L (136-145)
[2025-04-25 13:32] VITALS: BP 117/61; TEMP 98.4; O2SAT 98
[2025-04-25] MEDS: MYCOPHENOLATE MOFETIL 250 MG CAP (J7517) PO SCH (14:10)
[2025-04-25 16:00] VITALS: BP 100/63; TEMP 98.1; O2SAT 98
[2025-04-25 16:09] LABS: APPEARANCE, URINE CLEAR (CLEAR); BACTERIA, URINE AUTO NEGATIVE (NEGATIVE); BILIRUBIN, URINE AUTO NEGATIVE (NEGATIVE); BLOOD, URINE BLOOD NEGATIVE (NEGATIVE); GLUCOSE, URINE (UA) AUTO NEGATIVE (NEGATIVE); KETONE, URINE AUTO 1+ mg/dL (NEGATIVE); LEUKOCYTE ESTERASE, URINE AUTO NEGATIVE (NEGATIVE); MUCUS, URINE SMALL (NEGATIVE); NITRITE, URINE AUTO NEGATIVE (NEGATIVE); PROTEIN, URINE AUTO 1+ mg/dL (NEGATIVE); RBC, URINE AUTO 0 /HPF (0-3); SPECIFIC GRAVITY URINE AUTO 1.028 (1.002-1.035); SQUAMOUS EPITHELIAL CELL UR AU 0 /HPF (0-6); UROBILINOGEN, URINE AUTO 2.0 mg/dL (0.0-2.0); WBC, URINE AUTO 1 /HPF (0-3)
[2025-04-25 20:00] VITALS: BP 109/57; TEMP 98; O2SAT 96
[2025-04-26] VITALS: BP 110/57; TEMP 98.3; O2SAT 96
[2025-04-26 04:00] VITALS: BP 112/58; TEMP 97.9; O2SAT 97
[2025-04-26 07:58] VITALS: BP 111/61; TEMP 98.1; O2SAT 98
[2025-04-26 08:30] LABS: PLATELET COUNT, AUTOMATED 193 10^3/uL (150-450)
[2025-04-26 08:54] LABS: CALCIUM LEVEL 8.4 MG/DL (8.3-10.6); CARBON DIOXIDE LEVEL 27.0 MMOL/L (20-31); CHLORIDE LEVEL 103.0 MMOL/L (98-107); CREATININE FOR GFR 0.98 MG/DL (0.70-1.30); GLOMERULAR FILTRATION RATE 87.2 (>49); POTASSIUM SERUM 3.2 MMOL/L (3.5-5.1); SODIUM LEVEL 142.0 MMOL/L (136-145)
[2025-04-26] MEDS: BACTRIM 160MG/800MG DS TAB PO SCH (09:00)
[2025-04-26] MEDS: POTASSIUM CHLORIDE 10MEQ SR TABLET PO ONE (13:19)
[2025-04-26 14:28] VITALS: BP 105/62; TEMP 97.4; O2SAT 95
[2025-04-26 21:05] VITALS: BP 98/60; TEMP 97.9; O2SAT 98
[2025-04-27] VITALS: BP 98/55; TEMP 98; O2SAT 98
[2025-04-27 05:18] VITALS: BP 106/65; TEMP 98.3; O2SAT 100
[2025-04-27 06:50] LABS: BASO # 0.1 10^3/uL (0.0-0.2); BASO % 0.7 % (0.0-1.0); EOS # 0.1 10^3/uL (0.0-0.5); EOS % 1.4 % (0.0-3.0); LYMPH # 1.7 10^3/uL (1.5-5.0); LYMPH % 18.4 % (24.0-44.0); MONO # 0.7 10^3/uL (0.0-0.8); MONO % 8.0 % (2.0-8.0); NEUTROPHILS # 6.4 10^3/uL (1.5-8.5); NEUTROPHILS % 70.9 % (36.0-66.0); PLATELET COUNT, AUTOMATED 197 10^3/uL (150-450)
[2025-04-27 07:02] LABS: CALCIUM LEVEL 8.4 MG/DL (8.3-10.6); CARBON DIOXIDE LEVEL 27.0 MMOL/L (20-31); CHLORIDE LEVEL 105.0 MMOL/L (98-107); CREATININE FOR GFR 1.04 MG/DL (0.70-1.30); GLOMERULAR FILTRATION RATE 81.2 (>49); MAGNESIUM LEVEL 2.1 MG/DL (1.8-2.4); POTASSIUM SERUM 3.6 MMOL/L (3.5-5.1); SODIUM LEVEL 144.0 MMOL/L (136-145)
== END 2025-04-27 13:38 | disposition home or self-care (01) ==
LOC: M ED 08:07 → EDBD 08:07 → M ED INP 10:16 → M MSPAV 13:33
PROVIDERS: ADMIT Internal Medicine; ATTEND Internal Medicine
DX: R00.1 Bradycardia, unspecified (principal); J84.9 Interstitial pulmonary disease, unspecified; E03.9 Hypothyroidism, unspecified; K59.00 Constipation, unspecified; I48.0 Paroxysmal atrial fibrillation; K21.9 Gastro-esophageal reflux disease without esophagitis; Z79.01 Long term (current) use of anticoagulants; Z79.890 Hormone replacement therapy; Z79.52 Long term (current) use of systemic steroids; Z79.899 Other long term (current) drug therapy; Z88.0 Allergy status to penicillin; Z86.711 Personal history of pulmonary embolism
CPT/HCPCS: 36415; 80048; 80053; 80162; 81001; 83735; 84443; 84484; 85025; 85027; 93005; 99285; J7512; J7517

== ENCOUNTER → 2025-05-03 | Outpatient (CLI) | payer OTHER ==
[2025-05-03 12:27] LABS: PLATELET COUNT, AUTOMATED 222 10^3/uL (150-450)
[2025-05-03 12:39] LABS: ALT/SGPT 36.0 U/L (7.0-40); AST/SGOT 27.0 U/L (<34); CALCIUM LEVEL 8.9 MG/DL (8.3-10.6); CARBON DIOXIDE LEVEL 26.0 MMOL/L (20-31); CHLORIDE LEVEL 102.0 MMOL/L (98-107); CREATININE FOR GFR 0.99 MG/DL (0.70-1.30); GLOMERULAR FILTRATION RATE 86.1 (>49); POTASSIUM SERUM 3.6 MMOL/L (3.5-5.1); SODIUM LEVEL 140.0 MMOL/L (136-145)
== END ==
LOC: M LAB 10:55
PROVIDERS: ATTEND Internal Medicine Pulmonary Disease
DX: J84.9 Interstitial pulmonary disease, unspecified (principal)

== ENCOUNTER → 2025-05-03 | Outpatient (CLI) | payer OTHER ==
[~2025-05-03] MED LIST changes: -BACTDSTA PO; +SULF-8 PO
== END ==
LOC: M EKG 11:18
PROVIDERS: ATTEND Internal Medicine
DX: R00.1 Bradycardia, unspecified (principal)